=== PATIENT | female | born 1930 | race Hispanic/Latino ===

== ENCOUNTER 2017-01-04 10:24 | Inpatient (IN) | payer MEDICARE, BC ==
[2017-01-04 10:27] VITALS: BMI 29.0
[2017-01-04] MEDS ORDERED: Sodium Chloride 0.9% 1,000 ML IV STA (10:50)
--- NOTE | 2017-01-04 11:10 | ED PDOC ---
HPI: Altered Mental Status Time Seen by Provider: 01/04/17 10:32 Chief Complaint (Nursing): Altered Mental Status History Per: EMS, Other (collections attorney) Additional Complaint(s): 86-year-old female, PMHx includes CVA, Hypertension and COPD, is brought to the emergency department by EMS, called by homemaker, with complaints of AMS. [facility] [employer] reports that this morning, patient appeared more disoriented and confused than baseline. Patient denies any complaints at this time. No headache , dizziness, chest pain, abdominal pain, or any other associated symptoms. No other complaints at this time. Past Medical History Reviewed: Historical Data, Nursing Documentation, Vital Signs ( ) Vital Signs: Last Vital Signs Temp 98.2 F 01/04/17 10:26 Pulse 88 01/04/17 10:26 Resp 20 01/04/17 10:26 BP 184/108 H 01/04/17 10:26 Pulse Ox 100 01/04/17 10:26 - Medical History PMH: CVA - Family History Family History: States: Unknown Family Hx - Allergies Allergies/Adverse Reactions: Allergies Allergy/AdvReac Type Severity Reaction Status Date / Time Unobtainable Allergy Verified 01/04/17 10:43 Review of Systems ROS Statement: Except As Marked, All Systems Reviewed And Found Negative Constitutional: Negative for: Fever Respiratory: Negative for: Cough, Shortness of Breath Gastrointestinal: Negative for: Nausea, Vomiting Skin: Negative for: Rash Neurological: Positive for: Confusion. Negative for: Weakness, Numbness Physical Exam - Reviewed Nursing Documentation Reviewed: Yes Vital Signs Reviewed: Yes - Physical Exam Appears: Positive for: Non-toxic, No Acute Distress Head Exam: Positive for: ATRAUMATIC, NORMOCEPHALIC Skin: Positive for: Warm, Dry. Negative for: Rash Eye Exam: Positive for: Normal appearance Neck: Positive for: Painless ROM Cardiovascular/Chest: Positive for: Regular Rate, Rhythm Respiratory: Positive for: Rhonchi (scattered). Negative for: Accessory Muscle Use, Respiratory Distress Gastrointestinal/Abdominal: Positive for: Soft. Negative for: Tenderness Extremity: Positive for: Normal ROM, Pedal Edema (2+) Neurologic/Psych: Positive for: Alert, Oriented (x2). Negative for: Motor/ Sensory Deficits - Laboratory Results Result Diagrams: 01/04/17 11:38 03/27/17 15:01 - ECG O2 Sat by Pulse Oximetry: 100 Medical Decision Making Medical Decision Making: Impression: AMS Plan: * CT Head * EKG * CMP * CBC * Chest X-Ray * IVF * Blood/Urine Cultures * Reassess and Disposition EKG Rate 84bpm Rhythm NSR Interpret No acute ST/T wave changes Addl h/o obtained from son. Confusion began last night as reported by caregiver to son last night. Family requesting transfer to [facility] as PMD is their. Explained to family that all testing, workup and tx is available at [facility] but still requesting transfer to [facility] Famiy reconsidered and wishes pt to be admitted here Scribe Attestation: Documented by Aleyda Nielson acting as a scribe for Robert Herzog MD. Provider Attestation: All medical record entries made by the Scribe were at my direction and personally dictated by me. I have reviewed the chart and agree that the record accurately reflects my personal performance of the history, physical exam, medical decision making, and the department course for this patient. I have also personally directed, reviewed, and agree with the discharge instructions and disposition. Disposition - Clinical Impression Clinical Impression: Urinary tract infection, Renal insufficiency, Altered mental status - Patient ED Disposition Is Patient to be Admitted: Yes - Disposition Disposition Time: 15:40 Condition: FAIR - Pt Status Changed To: Hospital Disposition Of: Inpatient - Admit Certification Admit to Inpatient:: After my assessment, the patient will require hospitalization for at least two midnights. This is because of the severity of symptoms shown, intensity of services needed, and/or the medical risk in this patient being treated as an outpatient. - POA Present On Arrival: None
[2017-01-04 11:20] LABS: VENOUS BLOOD GAS BASE EXCESS -2.1 mmol/L (0.0-2.0); VENOUS BLOOD GAS PCO2 49 mmHg (40-60); VENOUS BLOOD PH 7.31 (7.32-7.43)
[2017-01-04 11:53] LABS: BASO # 0.1 K/uL (0.0-0.2); BASO % 0.8 % (0.0-2.0); EOS # 0.9 K/uL (0.0-0.7); EOS % 9.2 % (0.0-4.0); HEMATOCRIT 45.9 % (34.0-47.0); LYMPH # 1.6 K/uL (1.0-4.3); LYMPH % 15.5 % (20.0-40.0); MEAN CELL VOLUME 99.5 fl (81.0-99.0); MEAN CORPUSCULAR HEMOGLOBIN 33.3 pg (27.0-31.0); MEAN CORPUSCULAR HGB CONC 33.5 g/dL (33.0-37.0); MEAN PLATELET VOLUME 8.2 fl (7.2-11.7); MONO # 0.8 K/uL (0.0-0.8); MONO % 7.6 % (0.0-10.0); NEUT # 6.8 K/uL (1.8-7.0); NEUT % 66.9 % (50.0-75.0); NRBC % 0.1 % (0.0-0.0); RED CELL DISTRIBUTION WIDTH 15.2 % (11.5-14.5); WHITE BLOOD COUNT 10.1 K/uL (4.8-10.8)
--- NOTE | 2017-01-04 13:13 | RAD ---
HISTORY: AMS COMPARISON: No prior. TECHNIQUE: Chest PA and lateral FINDINGS: LUNGS: The lungs are well inflated and clear. PLEURA: No significant pleural effusion identified. No pneumothorax apparent. CARDIOVASCULAR: There is mild cardiomegaly. There is unfolding of aorta. Midfoot arch. OSSEOUS STRUCTURES: No significant abnormalities. VISUALIZED UPPER ABDOMEN: Normal. OTHER FINDINGS: None. IMPRESSION: No active pulmonary disease.
--- NOTE | 2017-01-04 13:58 | CT ---
PROCEDURE: CT HEAD WITHOUT CONTRAST. HISTORY: r/o bleed COMPARISON: None available. TECHNIQUE: Axial computed tomography images were obtained through the head/brain without intravenous contrast. Radiation dose: Total exam DLP = 1211.14 mGy-cm. FINDINGS: HEMORRHAGE: No intracranial hemorrhage. BRAIN: No mass effect or edema. Moderate atrophy. Moderate white matter changes are noted likely due to chronic microvascular ischemic disease. Widening of the extra-axial space in the posterior fossa left more than right of uncertain etiology. 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 VENTRICLES: Unremarkable. No hydrocephalus. CALVARIUM: Unremarkable. PARANASAL SINUSES: Unremarkable as visualized. No significant inflammatory changes. MASTOID AIR CELLS: Unremarkable as visualized. No inflammatory changes. OTHER FINDINGS: None. IMPRESSION: No evidence of acute intracranial hemorrhage. Mild atrophy and moderate to extensive white matter changes suggestive but nonspecific for chronic microvascular ischemic disease. . No CT evidence of acute pathology in the brain.
[2017-01-04] MEDS ORDERED: Piperacillin/Tazobact 3.375 GM in Sodium Chloride 0.9% 100 ML IVPB STA (14:32)
[2017-01-04] MEDS ORDERED: Piperacillin/Tazobact 3.375 gm Inj IVPB ONE (14:55)
[2017-01-04 15:29] LABS: CALCIUM 11.8 mg/dL (8.4-10.2)
[2017-01-04 15:36] LABS: RBC URINE 67 /hpf (0-3); URINE BILIRUBIN NEGATIVE (NEGATIVE); URINE BLOOD NEGATIVE (NEGATIVE); URINE COLOR YELLOW (YELLOW); URINE GLUCOSE (UA) NEG (Normal); URINE KETONE TRACE mg/dL (NEGATIVE); URINE LEUKOCYTE ESTERASE MOD Leu/uL (Negative); URINE PROTEIN 100 mg/dL (NEGATIVE); URINE UROBILINOGEN 0.2-1.0 mg/dL (0.2-1.0); WBC URINE 3882 /hpf (0-5)
--- NOTE | 2017-01-04 17:12 | CARD ---
APPROVED REPORT EKG Measurement Heart [id number] <Conclusion> Sinus rhythm with frequent premature ventricular complexes Left anterior fascicular block Cannot rule out Inferior infarct (masked by fascicular block?), age undetermined Anterior infarct, age undetermined Abnormal ECG
--- NOTE | 2017-01-04 18:37 | PCM.RRTMUL ---
<Hazel Ernandez - Last Filed: 01/04/17 18:35> BLASTING MACHINE OPERATOR Nurse Assessment - Vital Signs Blood Pressure:: 161/86 Pulse Rate:: 85 Respiratory Rate:: 16 Responder Note - Time BLASTING MACHINE OPERATOR was called Time BLASTING MACHINE OPERATOR was called:: 17:59 - Location Location: [facility] Primary Physician:: Francois Rothman I - BLASTING MACHINE OPERATOR Team BLASTING MACHINE OPERATOR Leader:: Eboni White Resident:: Hazel Ernandez - Vital Signs at Initial Assessment Blood Pressure:: 209/106 Pulse Rate:: 66 Respiratory Rate:: 14 - Chest Pain Chest Pain:(If answer is yes, complete next 2 questions): No - Seizure Seizure:: No New Onset:: No - Neurological Status Neurological Status (Select all that apply):: Alert, Responsive, Follows Commands, Confused - Respiratory BLASTING MACHINE OPERATOR Delivery Method:: Nasal Cannula @L/min (2) - Assessment of Findings BLASTING MACHINE OPERATOR Interventions: Hydralizine 10mg IVP EKG: EKG Labs: CBC, CMP, Trop Summary - Summary of Event Summary of Event: 86 year old female with a history of COPD, HTN, CVA. Called to respond to BLASTING MACHINE OPERATOR for BP 209/106. Vitals otherwise stable. Patient admitted with acute mental status changes likely secondary to delirium with UTI. Denies chest pain, shortness of breath, palpitations. Saturations and respirations WNL. Physical Exam: HEENT: NC, AT, ABBIE LUNGS: CTA BL CV: S1 S2 RRR No M/R/G Abd: Soft, nt, nd Ext: no cyanosis/ edema Mental status: AOx2, slight confusion, labile affect Hydralizine 10mg IVP given- BP improved 170/[address] Rothman notified of event EKG ordered and ER EKG reviewed- PVCs- no signs of acute infarct Troponin ordered stat, CBC, CMP Spanner Operator: , Dr. Brayan Palomares. Attempted to contact. Spoke with central office supervisor. <Eboni White - Last Filed: 01/16/17 14:02> Attending/Attestation - Attestation I have personally seen and examined this patient.: Yes I have fully participated in the care of the patient.: Yes I have reviewed all pertinent clinical information: Yes Notes (Text): 01/16/17 14:01 seen and examined patient with resident and BLASTING MACHINE OPERATOR TEAM. Agree with findings and plan as above.
[2017-01-04] MEDS ORDERED: Magnesium Hydroxide Susp 30 ml UD PO PRN (19:05)
[2017-01-04] MEDS: Sodium Chloride 0.45% 1,000 ML IV SCH (20:00)
[2017-01-04] MEDS: Insulin Regular 100 units/ml SC SCH (21:30)
[2017-01-04] MEDS: Piperacillin/Tazobact 3.375 GM in Sodium Chloride 0.9% 100 ML IVPB SCH (21:34)
[2017-01-04] MEDS: Albuterol-Ipratrop 3 mg / 0.5 (3 ml) UD INH SCH (22:00)
[2017-01-05] MEDS: Albuterol-Ipratrop 3 mg / 0.5 (3 ml) UD INH SCH ×4 (01:06→21:23)
[2017-01-05] MEDS: Insulin Regular 100 units/ml SC SCH ×4 (06:44→22:25)
[2017-01-05] MEDS: Pantoprazole 40 mg EC Tab PO SCH (08:58)
[2017-01-05] MEDS: Metoprolol Succinate 50 mg XL Tab PO SCH (08:59)
[2017-01-05] MEDS ORDERED: HYDRALAZINE HCL 50 MG PO SCH (09:00)
[2017-01-05] MEDS ORDERED: Metoprolol Succinate 25 mg XL Tab PO SCH (09:00)
[2017-01-05] MEDS: Piperacillin/Tazobact 3.375 GM in Sodium Chloride 0.9% 100 ML IVPB SCH ×2 (09:02→21:23)
--- NOTE | 2017-01-05 12:31 | HP ---
SUBJECTIVE: The patient is an 86-year-old female who was admitted via the Emergency Room after she w as brought in by a homemaker complaining of change in mental status. She appeared disoriented and co nfused the day of admission. She was seen in the Emergency Room and diagnosed with urinary tract inf ection and elevated blood pressure and admitted for workup and therapy. PAST MEDICAL HISTORY: She has a past medical history of hypertension, cerebrovascular accident, card iac arrhythmias, and COPD. FAMILY HISTORY: Nonrevealing. SOCIAL HISTORY: She does not drink or smoke. 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 Has a very supportive family. PHYSICAL EXAMINATION: GENERAL: The patient is alert, oriented x 1, appears to be much more comfortable this morning. VITAL SIGNS: Blood pressure on admission 184/108, pulse of 88, respiratory rate 20. She is afebrile . O2 sat 100% on room air. SKIN: Shows fair turgor. HEENT: Pupils equal and react to light and accommodation. Mouth shows fair hygiene. NECK: JVP flat. LUNGS: Clear. HEART: Regular. No murmurs or gallops. ABDOMEN: Soft, nontender, no organomegaly. EXTREMITIES: Shows no edema or cyanosis. CENTRAL NERVOUS SYSTEM: Grossly intact. LABORATORY DATA: WBC 10.1, hemoglobin 15.4, platelet count of 259,000. Sodium 140, potassium 5.0, B UN 69, creatinine 5.4, troponin 0.022. EKG sinus rhythm with frequent PVCs. CT scan of the brain: No evidence of acute intracranial hemorrhage, mild atrophy and moderate to extensive white matter annie nges suggestive, but nonspecific for chronic microvascular ischemic disease. Chest x-ray: No acute cardiopulmonary disease. Urinalysis is remarkable for moderate leukocytes, red blood cells of 67. W BC 3882. IMPRESSION: Altered mental status, probably secondary to urinary tract infection and dehydration, hi story of cardiac arrhythmias, history of hypertension poorly controlled, history of atrial fibrillati on for which the patient takes Coumadin, but apparently has been noncompliant. PLAN: IV hydration. Blood pressure control, cardiac evaluation. Will continue therapy as ordered. Francois Rothman MD cc: [id number] TT: 01/05/2017 12:30:32 jn
--- NOTE | 2017-01-05 13:38 | PQF GENQUE ---
Dr. Rothman, (1) Pressure Ulcer(s)?; if yes: (2) Site and Stage ? (3) POA: Present on Admission? OR: Unable to determine? Nurses Admission Assessment: sacrum: redness, skin excoriation perianal area, and inner thighs Attending Physician order: Nursing referral Wound Care: reason for exam: Pressure Ulcer Wound Consult:pending This form is a permanent part of the medical record Clarification of your documentation is requested to better reflect the severity of illness and intensity of treatment of your patient. Indicators present [] Specify: [] [] Specify: [] [] Specify: [] [] Specify: [] Location in the medical record that reflects the above clinical findings: [] Treatment Provided: [] PHYSICIAN'S RESPONSE Based on your medical judgment of the clinical indicators outlined above please clarify the following: [] Practitioner response [] If unable to determine, please check the box, sign and date. Present On Admission (POA) Indicator: [] Present at the time of admission [] Not present at the time of admission [] Clinically Undetermined In responding to this query, please exercise your independent professional judgment. The fact that a question is asked does not imply that any particular answer is desired or expected. Thank you for your clarification on this documentation. If you have any questions please call. * Thank you, Italia Saunders RN BSN ext. #[phone] MTDD
[2017-01-05] MEDS: Sodium Chloride 0.45% 1,000 ML IV SCH (19:30)
[2017-01-06] MEDS: Albuterol-Ipratrop 3 mg / 0.5 (3 ml) UD INH SCH ×4 (01:09→20:50)
[2017-01-06] MEDS: Insulin Regular 100 units/ml SC SCH ×4 (06:30→22:00)
[2017-01-06] MEDS: Pantoprazole 40 mg EC Tab PO SCH (09:14)
[2017-01-06] MEDS: Metoprolol Succinate 50 mg XL Tab PO SCH (09:14)
[2017-01-06] MEDS: Piperacillin/Tazobact 3.375 GM in Sodium Chloride 0.9% 100 ML IVPB SCH ×2 (09:15→21:17)
--- NOTE | 2017-01-06 10:02 | CP.PCM.PN ---
Subjective - Date & Time of Evaluation Date of Evaluation: 01/06/17 Time of Evaluation: 10:02 - Subjective Subjective: CLINICALLY IMPROVING MORE ALERT NO APPARENT DISTRESS Objective - Vital Signs/Intake and Output Vital Signs (last 24 hours): Temp Pulse Resp BP Pulse Ox 98.2 F 68 18 147/74 97 01/06/17 08:15 01/06/17 09:14 01/06/17 08:15 01/06/17 09:14 01/06/17 08:15 - Medications Medications: Current Medications Albuterol/Ipratropium (Duoneb 3 Mg/0.5 Mg (3 Ml) Ud) 3 ml INH RQ6 [facility] Last Admin: 01/06/17 08:12 Dose: 3 ml Allopurinol (Zyloprim) 100 mg PO DAILY [facility] Last Admin: 01/06/17 09:15 Dose: 100 mg Amlodipine Besylate (Norvasc) 2.5 mg PO DAILY [facility] Last Admin: 01/06/17 09:13 Dose: 2.5 mg Clonidine HCl (Catapres) 0.1 mg PO TID PRN PRN Reason: bp systolic greater than 170 Docusate Sodium (Colace) 100 mg PO DAILY PRN PRN Reason: Constipation Hydralazine HCl (Apresoline) 50 mg PO TID [facility] Last Admin: 01/06/17 09:12 Dose: 50 mg Hydroxyzine HCl (Atarax) 25 mg PO DAILY [facility] Last Admin: 01/06/17 09:12 Dose: 25 mg Piperacillin Sod/Tazobactam (Sod 3.375 gm/ Sodium Chloride) 100 mls @ 100 mls/ hr IVPB Q12 [facility] Last Admin: 01/06/17 09:15 Dose: 100 mls/hr Insulin Human Regular (Humulin R) 0 units SC ACHS [facility] PRN Reason: Protocol Last Admin: 01/06/17 06:30 Dose: Not Given Magnesium Hydroxide (Milk Of Magnesia) 30 ml PO QID PRN PRN Reason: Constipation Metoprolol Succinate (Toprol Xl) 50 mg PO DAILY [facility] Last Admin: 01/06/17 09:14 Dose: 50 mg Pantoprazole Sodium (Protonix Ec Tab) 40 mg PO DAILY [facility] Last Admin: 01/06/17 09:14 Dose: 40 mg - Labs Labs: PT 12.3 SECONDS (9.6-11.2) H 01/05/17 09:05 INR 1.18 (0.92-1.08) H 01/05/17 09:05 - Constitutional Appears: No Acute Distress - Head Exam Head Exam: ATRAUMATIC, NORMAL INSPECTION, NORMOCEPHALIC - Eye Exam Eye Exam: EOMI, Normal appearance, PERRL Pupil Exam: NORMAL ACCOMODATION, PERRL - ENT Exam ENT Exam: Mucous Membranes Moist, Normal Exam - Neck Exam Neck Exam: Full ROM, Normal Inspection. absent: Lymphadenopathy - Respiratory Exam Respiratory Exam: Clear to Ausculation Bilateral, NORMAL BREATHING PATTERN - Cardiovascular Exam Cardiovascular Exam: REGULAR RHYTHM, +S1, +S2. absent: Murmur - GI/Abdominal Exam GI & Abdominal Exam: Soft, Normal Bowel Sounds. absent: Tenderness - Rectal Exam Rectal Exam: NORMAL INSPECTION - Extremities Exam Extremities Exam: Full ROM, Normal Capillary Refill, Normal Inspection. absent : Joint Swelling, Pedal Edema - Back Exam Back Exam: NORMAL INSPECTION - Neurological Exam Neurological Exam: Alert, Awake, CN II-XII Intact, Normal Gait, Oriented x3 - Psychiatric Exam Psychiatric exam: Normal Affect, Normal Mood - Skin Skin Exam: Dry, Intact, Normal Color, Warm Assessment and Plan - Assessment and Plan (Free Text) Assessment: UTI DEHYDRATION HTN ARRYTHMIAS Plan: CONTINUE PRESENT RX D/C IV FLUIDS CONSIDER TRANSITIONAL CARE IF OK WITH FAMILY
[2017-01-06 10:30] LABS: CALCIUM 10.6 mg/dL (8.4-10.2); POTASSIUM 4.8 MMOL/L (3.6-5.0)
--- NOTE | 2017-01-06 17:14 | CON ---
DATE: 01/06/2017 REASON FOR EVALUATION: 1. Atrial fibrillation. 2. Coronary artery disease, atherosclerotic heart disease. 3. Hypertension. 4. Mitral regurgitation. 5. Renal insufficiency. HISTORY OF PRESENT ILLNESS: Thank you very much for this consult. The patient is an 86-year-old female, long-term patient of mine with past medical history s ignificant for atrial fibrillation, status post WILLIAM cardioversion, now in normal sinus rhythm/sinus b radycardia, coronary artery disease, atherosclerotic heart disease, hypertension, mitral regurgitatio n, and renal insufficiency, who presents to [facility] after being found to have alt ered mental status by her homemaker. At the time of evaluation, the patient appeared disoriented and confused. The patient was admitted for hypertensive urgency and possible urinary tract infection. I was reached for medical records as well as a 12-lead EKG. I have been asked to see her formally fr om a cardiovascular standpoint. Today at the bedside, she appears to be at/near baseline in terms of mental status. She is awake and oriented x 3 without any degree of confusion. She has poor functio nal status. Previously had been able to take a few steps on her own and has had prolonged admissions to rehabilitation in an effort to improve her functional status. At this point, she is, generally s peaking, wheelchair bound. She denies any palpitations, shortness of breath or chest discomfort. Sh e denies any dizziness or syncope. PAST MEDICAL HISTORY: Again, significant for hypertension, chronic renal insufficiency, history of C VA, atrial fibrillation on amiodarone, COPD. FAMILY HISTORY: Negative for premature coronary artery disease or sudden cardiac . 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 She does not smoke . She does not drink. She has a very supportive family. Very familiar with her son, Pritesh. PHYSICAL EXAMINATION: VITAL SIGNS: Temperature is 97.7, pulse rate of 68, blood pressure is 147/74. GENERAL: She is a well-developed, well-nourished female in no acute distress. Able to spe ak in complete sentences. HEENT: Head is normocephalic, atraumatic. There is no mart facial asymmetry. She is able to speak clearly. Examination of her eyes does show some iridial abnormalities. NECK: Supple, no jugular venous distention, no carotid bruits. CHEST: Clear to auscultation bilaterally. CARDIOVASCULAR: Regular rate and rhythm. S1, S2. No S3 or S4. ABDOMEN: Soft, nontender, nondistended. Positive bowel sounds. EXTREMITIES: No cyanosis, clubbing. There is 1+ lower extremity edema. Peripheral pulses are 2+ an d symmetric in bilateral upper and lower extremities. On review of relevant lab work, patient has an INR of 1.8. PT of 12.3. Sodium of 141. Potassium is 4.8. BUN and creatinine of 76 and 6.0. White count is 10.1, which is on the 27th. H and H of 15.4 and 45.9, platelets of 259. INR is 1.0. Creatinine had been 76 and 6.0, now it is 69 and 5.4. Tro ponin 0.022. CURRENT MEDICATIONS: The patient is on albuterol, DuoNeb, amlodipine 2.5 mg p.o. daily, clonidine 0. 1 mg 3 times a day p.r.n. for very elevated blood pressure, hydralazine 50 mg 3 times a day, metoprol ol XL 50 mg daily, warfarin 4 mg p.o. daily, which is being given. EKG from presentation shows sinus rhythm, sinus arrhythmia, PVCs, poor precordial R-wave progression, QT and QTC of 382 and 451 respectively. Compared to EKG which was last done on 06/29/2016 shows kiara beasley poor precordial R-wave progression, normal sinus rhythm, 76 beats per minute. QT, QTC in this case was 404 and 28 respectively. In terms of when she was last seen in the office, last creatinine was 4.4. The patient had been in n ormal sinus rhythm and she was to be on anticoagulation. She had been on amiodarone 100 mg once a da y. ASSESSMENT AND PLAN: 1. Atrial fibrillation, status post WILLIAM cardioversion and amiodarone therapy. At this point, would resume amiodarone at 100 mg p.o. daily. Would continue her current medications in terms of anticoagu lation, Coumadin, to achieve a therapeutic INR. 2. History of coronary artery disease, atherosclerotic heart disease. The patient has had a history of positive stress test in the past, cardiac catheterization was deferred secondary to patient's mar ginal renal status. Would continue current medical therapy in an effort to prevent angina or worseni ng heart failure. 3. Hypertension. We will continue adjusting her medications as such, clonidine p.r.n. at this point I believe to be reasonable. She may be, on some basis, hypertensive secondary to poor fluid clearan ce. The patient may need sporadic Lasix which will be added as such. 4. Mitral regurgitation which on prior studies has been severe. Again, invasive, aggressive managem ent of mitral regurgitation is not desired at this time given her multiple medical issues. 5. Renal insufficiency, which appears to be worse. We may consider giving diuretics to maintain her fluid status. The patient's steel fixer is Dr. Dotson, who has been following her serially. Thank you for allowing me to participate in the care of your patient. Please do not hesitate to call for any questions in regards to her care. Brayan Jenkins MD cc:Francois Rothman MD [id number] TT: 01/06/2017 17:13:47 Confirmation # [id number] Dictation # [id number] betty
--- NOTE | 2017-01-06 18:16 | US ---
PROCEDURE: Ultrasound of the Kidneys HISTORY: renal insufficiency COMPARISON: None available. TECHNIQUE: Sonogram of the kidneys. FINDINGS: RIGHT KIDNEY: Measures: 8.3 x 4.1 x 4.7 cm. The kidneys are echogenic. No stone, solid mass lesion or hydronephrosis visualized. LEFT KIDNEY: Measures: 9.5 x 4 x 3.5 cm. Kidneys are echogenic. No stone, solid mass lesion or hydronephrosis visualized. OTHER FINDINGS: None. IMPRESSION: Echogenic kidneys suggestive of medical renal disease. No evidence of hydronephrosis.
--- NOTE | 2017-01-06 20:11 | CP.PCM.CON ---
History of Present Illness - History of Present Illness History of Present Illness: pt seen and examined, full consult is dictated #[id number] 1. JIL on ckd-4, 2. dehydration 3. met. acidosis 4. UTI continue iv abx check urine lytes, osm, cr ivf 1/2 ns at 50 ml /hr bmp in am Past Patient History - Past Medical History & Family History Past Medical History?: Yes - Past Social History Smoking Status: Former Smoker - CARDIAC Hx Atrial Fibrillation: Yes Hx Congestive Heart Failure: Yes Hx Hypertension: Yes - PULMONARY Other/Comment: bipap at home - NEUROLOGICAL HX Cerebrovascular Accident: Yes - ENDOCRINE/METABOLIC Hx Diabetes Mellitus Type 2: Yes - MUSCULOSKELETAL/RHEUMATOLOGICAL Hx Arthritis: Yes Hx Falls: Yes Hx Fractures: Yes - PSYCHIATRIC Hx Substance Use: No - SURGICAL HISTORY Hx Surgeries: Yes Hx Section: Yes (x2) - ANESTHESIA Hx Anesthesia: Yes Hx Anesthesia Reactions: No Meds Allergies/Adverse Reactions: Allergies Allergy/AdvReac Type Severity Reaction Status Date / Time colchicine Allergy RASH Verified 01/04/17 17:48 - Medications Medications: Current Medications Albuterol/Ipratropium (Duoneb 3 Mg/0.5 Mg (3 Ml) Ud) 3 ml INH RQ6 [facility] Last Admin: 01/06/17 16:30 Dose: 3 ml Allopurinol (Zyloprim) 100 mg PO DAILY [facility] Last Admin: 01/06/17 09:15 Dose: 100 mg Amiodarone HCl (Cordarone) 100 mg PO DAILY [facility] Amlodipine Besylate (Norvasc) 2.5 mg PO DAILY [facility] Last Admin: 01/06/17 09:13 Dose: 2.5 mg Clonidine HCl (Catapres) 0.1 mg PO TID PRN PRN Reason: bp systolic greater than 170 Docusate Sodium (Colace) 100 mg PO DAILY PRN PRN Reason: Constipation Hydralazine HCl (Apresoline) 50 mg PO TID [facility] Last Admin: 01/06/17 17:13 Dose: 50 mg Hydroxyzine HCl (Atarax) 25 mg PO DAILY [facility] Last Admin: 01/06/17 09:12 Dose: 25 mg Piperacillin Sod/Tazobactam (Sod 3.375 gm/ Sodium Chloride) 100 mls @ 100 mls/ hr IVPB Q12 [facility] Last Admin: 01/06/17 09:15 Dose: 100 mls/hr Sodium Chloride (Sodium Chloride 0.45%) 1,000 mls @ 50 mls/hr IV .Q20H [facility] Stop: 01/07/17 20:16 Insulin Human Regular (Humulin R) 0 units SC ACHS [facility] PRN Reason: Protocol Last Admin: 01/06/17 17:09 Dose: Not Given Magnesium Hydroxide (Milk Of Magnesia) 30 ml PO QID PRN PRN Reason: Constipation Metoprolol Succinate (Toprol Xl) 50 mg PO BID [facility] Pantoprazole Sodium (Protonix Ec Tab) 40 mg PO DAILY [facility] Last Admin: 01/06/17 09:14 Dose: 40 mg Sodium Bicarbonate (Sodium Bicarbonate Tab) 650 mg PO Q8 [facility] Results - Vital Signs Recent Vital Signs: Last Vital Signs Temp 97.9 F 01/06/17 19:49 Pulse 92 H 01/06/17 19:49 Resp 20 01/06/17 19:49 BP 157/89 H 01/06/17 19:49 Pulse Ox 98 01/06/17 19:49 - Labs Result Diagrams: 01/04/17 11:38 01/06/17 09:55 Labs: Laboratory Results - last 24 hr 01/05/17 01/05/17 01/05/17 05:03 11:09 14:52 PT INR Sodium Potassium Chloride Carbon Dioxide Anion Gap BUN Creatinine Est GFR ( Amer) Est GFR (Non-Af Amer) POC Glucose (mg/dL) 109 203 H 133 H Random Glucose Calcium 01/05/17 01/05/17 01/06/17 15:57 22:08 05:01 PT INR Sodium Potassium Chloride Carbon Dioxide Anion Gap BUN Creatinine Est GFR ( Amer) Est GFR (Non-Af Amer) POC Glucose (mg/dL) 98 103 112 H Random Glucose Calcium 01/06/17 01/06/17 01/06/17 09:55 11:23 11:34 PT 13.5 H INR 1.30 H Sodium 141 Potassium 4.8 Chloride 103 Carbon Dioxide 17 L Anion Gap 26 H BUN 76 H Creatinine 6.0 H Est GFR ( Amer) 8 Est GFR (Non-Af Amer) 7 POC Glucose (mg/dL) 181 H Random Glucose 122 H Calcium 10.6 H
[2017-01-06] MEDS: Sodium Chloride 0.45% 1,000 ML IV SCH (20:20)
[2017-01-07] MEDS: Albuterol-Ipratrop 3 mg / 0.5 (3 ml) UD INH SCH ×4 (01:01→19:36)
--- NOTE | 2017-01-07 01:46 | CON ---
DATE: 01/06/2017 RENAL CONSULTATION The patient is located in room 405, bed 1. REQUESTING PHYSICIAN: Dr. Francois Rothman. REASON FOR RENAL CONSULTATION: Acute renal failure, chronic kidney disease stage IV, UTI and altered mental status. 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 Diamond Dotson for nephology. Was admitted with chief complaints of altered me ntal status, confusion. The patient is being treated for possible UTI and worsening renal function. The patient is more alert, awake, following commands appropriately, responding to commands appropriat trent. Denies any chest pain, palpitation. Denies any nausea, vomiting. Denies any abdominal pain. Denies any dysuria or frequency. PAST MEDICAL HISTORY: Significant for hypertension for a long time and chronic kidney disease stage IV, anemia, and breast CA. PAST SURGICAL HISTORY: Status post surgery for breast CA on the left side when she was about 19 year s old. ALLERGIES: ALLERGIC TO COLCHICINE. SOCIAL HISTORY: The patient was an ex-smoker, social alcohol use and no drug abuse. FAMILY HISTORY: Not significant. 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 CURRENT MEDICATIONS: Include as follows: Hydralazine 50 mg p.o. t.i.d., Atarax 25 mg p.o. daily, Co lace 100 mg daily p.r.n., clonidine 0.1 mg p.o. t.i.d., DuoNeb inhaler q. 6 hours, milk of magnesia 3 0 mL p.o. q.i.d., amlodipine 2.5 mg p.o. daily, Protonix 40 mg p.o. daily, sodium bicarbonate 650 mg p.o. q. 8 hours, IV fluids started half normal saline at 50 mL per hour, metoprolol 50 mg p.o. b.i.d. , and allopurinol 100 mg p.o. daily. REVIEW OF SYSTEMS: Significant for dehydration and also altered mental status and worsening renal fu nction. All other review of systems are reviewed and are negative. PHYSICAL EXAMINATION: VITAL SIGNS: Blood pressure 157/89, pulse 92, respirations 20, temperature 97.9, saturation 98%. He ight 5 feet 7 inches and weight is 185 pounds. GENERAL: The patient is about an 86-year-old elderly female, moderately built, moderately nourished, not in acute distress. HEENT: Pupils normal, reactive to light and accommodation. Conjunctivae pink. Sclerae anicteric. Tongue is dry. NECK: Trachea is midline. No thyroid enlargement. LUNGS: Symmetric on both sides. Bilateral breath sounds present. Clear on auscultation. CARDIOVASCULAR: [place] at the fifth intercostal space midclavicular line. S1 and S2 audible. No murm ur or gallop. ABDOMEN: Normal in appearance. Soft, tympanic. No guarding, no rigidity, no hepatosplenomegaly. CENTRAL NERVOUS SYSTEM: The patient is alert, awake, oriented x2-3. Cranial nerves II-XII grossly i ntact. Sensory and motor system is within normal limits. EXTREMITIES: No cyanosis, no clubbing, no edema. LABORATORY DATA: Include as follows: As of 01/06/2017, PT 13.5, INR 1.3. Sodium 141, potassium 4.8 , chloride 103, CO2 17 with anion gap of about 21, BUN 76, creatinine 6.0 and glucose is 122, calcium is 10.6. As of 01/04/2017, WBC is 10.1, hemoglobin 15.4, hematocrit is 45.9, platelets 259. PT 11.4 , INR 1.1, VBG pH 7.31, pO2 28 and pCO2 of 49. Sodium is 140, potassium is 5, chloride 102, CO2 18 wi th anion gap about 20, BUN 69, creatinine is 5.4 and calcium was 11.8. Urinalysis: Yellow, turbid, p H 6 and specific gravity 1.013, protein 100, glucose negative, ketones trace, blood negative, nitrite s negative, bilirubin negative, urobilinogen 0.2-1.0, leukocyte esterase moderate, WBC 3882 and RBC 6 7 and troponin 0.022. Blood culture x1 negative day #2. Urine culture as of 01/04/2017 positive for S treptococcus anginosus and also Staphylococcus aureus. Streptococcus sensitive to Rocephin, penicilli n and vancomycin. Staph aureus sensitive to vancomycin. Other laboratory data, ultrasound of the kid neys as of 01/06/2017, right kidney 8.3 cm x 4.1 cm x 4.7 cm and left kidney 9.5 cm x 4 cm x 3.5 cm. Kidneys are echogenic. No evidence of hydronephrosis. CT of the head as of 01/04/2017, no evidence of acute intracranial hemorrhage, mild atrophy and moderate to extensive white matter changes suggestive but not specific for chronic microvascular ischemic disease. No CT evidence of acute pathology in th e brain. Chest x-ray as of 01/04/2017, no active pulmonary disease. SUMMARY: The patient is an 86-year-old elderly female with a history of hypertension, history of cer ebrovascular accident, chronic kidney disease stage IV with a baseline creatinine about 44.5, history of UTI 1-2 times a year in the past. 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 Diamond Dotson, who was admitted with altered mental status and found to have a urinary tract infection and also increas ed BUN and creatinine and increased H and H. 1. Renal failure, [id number] kidney disease, acute component is most likely secondary to intrav ascular volume depletion and chronic kidney disease most likely hypertensive nephrosclerosis. 2. Anion gap metabolic acidosis, most likely secondary to renal failure. 3. Urinary tract infection. 4. Hypertension. PLAN: We will start IV fluids half normal saline at 50 mL per hour and check urine electrolytes and osmolality and urine creatinine. Continue to monitor BMP in the a.m. We will follow with you. Thank you for allowing me to participate in your patient's care. Vinny Caballero MD cc: [id number] TT: 01/07/2017 01:46:10 Confirmation # [id number] Dictation # [id number] isma
[2017-01-07] MEDS: Insulin Regular 100 units/ml SC SCH ×4 (06:51→23:33)
[2017-01-07 07:35] LABS: CALCIUM 10.3 mg/dL (8.4-10.2); POTASSIUM 4.5 MMOL/L (3.6-5.0)
[2017-01-07 07:57] LABS: THYROID STIMULATING HORMONE 3.72 mIU/ML (0.46-4.68)
[2017-01-07 08:54] LABS: HEMATOCRIT 41.1 % (34.0-47.0); MEAN CELL VOLUME 99.1 fl (81.0-99.0); MEAN CORPUSCULAR HEMOGLOBIN 32.6 pg (27.0-31.0); MEAN CORPUSCULAR HGB CONC 32.9 g/dL (33.0-37.0); RED CELL DISTRIBUTION WIDTH 14.9 % (11.5-14.5)
--- NOTE | 2017-01-07 09:18 | CP.PCM.PN ---
Subjective - Date & Time of Evaluation Date of Evaluation: 01/07/17 Time of Evaluation: 09:20 - Subjective Subjective: CONFUSED NO APPOARENT DISTRESS CASE DISCUSSED WITH DR LIAO WHO INDICATES THAT HE HAS OPTIMIZED PT'S CARDIAC MEDS AND WILL NOT PURUE FURTHER AGGRESSIVE INTERVENTION.HE ALSO INDICATES THAT THE PT'S FAMILY DOES NOT WANT DIALYSIS FOR KIDNEY FAILURE. Objective - Vital Signs/Intake and Output Vital Signs (last 24 hours): Temp Pulse Resp BP Pulse Ox 98.4 F 94 H 18 188/98 H 98 01/07/17 08:06 01/07/17 08:06 01/07/17 08:06 01/07/17 08:06 01/07/17 08:06 - Medications Medications: Current Medications Albuterol/Ipratropium (Duoneb 3 Mg/0.5 Mg (3 Ml) Ud) 3 ml INH RQ6 [facility] Last Admin: 01/07/17 07:35 Dose: 3 ml Allopurinol (Zyloprim) 100 mg PO DAILY [facility] Last Admin: 01/06/17 09:15 Dose: 100 mg Amiodarone HCl (Cordarone) 100 mg PO DAILY [facility] Last Admin: 01/06/17 21:15 Dose: 100 mg Amlodipine Besylate (Norvasc) 2.5 mg PO DAILY [facility] Last Admin: 01/06/17 09:13 Dose: 2.5 mg Clonidine HCl (Catapres) 0.1 mg PO TID PRN PRN Reason: bp systolic greater than 170 Docusate Sodium (Colace) 100 mg PO DAILY PRN PRN Reason: Constipation Hydralazine HCl (Apresoline) 50 mg PO TID [facility] Last Admin: 01/06/17 17:13 Dose: 50 mg Hydroxyzine HCl (Atarax) 25 mg PO DAILY [facility] Last Admin: 01/06/17 09:12 Dose: 25 mg Piperacillin Sod/Tazobactam (Sod 3.375 gm/ Sodium Chloride) 100 mls @ 100 mls/ hr IVPB Q12 [facility] Last Admin: 01/06/17 21:17 Dose: 100 mls/hr Sodium Chloride (Sodium Chloride 0.45%) 1,000 mls @ 50 mls/hr IV .Q20H [facility] Stop: 01/07/17 20:16 Last Admin: 01/06/17 20:20 Dose: 50 mls/hr Insulin Human Regular (Humulin R) 0 units SC ACHS [facility] PRN Reason: Protocol Last Admin: 01/07/17 06:51 Dose: Not Given Magnesium Hydroxide (Milk Of Magnesia) 30 ml PO QID PRN PRN Reason: Constipation Metoprolol Succinate (Toprol Xl) 50 mg PO BID [facility] Pantoprazole Sodium (Protonix Ec Tab) 40 mg PO DAILY [facility] Last Admin: 01/06/17 09:14 Dose: 40 mg Sodium Bicarbonate (Sodium Bicarbonate Tab) 650 mg PO Q8 [facility] Last Admin: 01/07/17 01:31 Dose: 650 mg - Labs Labs: 01/07/17 08:15 01/07/17 06:15 PT 13.5 SECONDS (9.6-11.2) H 01/06/17 11:23 INR 1.30 (0.92-1.08) H 01/06/17 11:23 - Constitutional Appears: No Acute Distress, Confused - Head Exam Head Exam: ATRAUMATIC, NORMAL INSPECTION, NORMOCEPHALIC - Eye Exam Eye Exam: EOMI, Normal appearance, PERRL Pupil Exam: NORMAL ACCOMODATION, PERRL - ENT Exam ENT Exam: Mucous Membranes Moist, Normal Exam - Neck Exam Neck Exam: Full ROM, Normal Inspection. absent: Lymphadenopathy - Respiratory Exam Respiratory Exam: Clear to Ausculation Bilateral, NORMAL BREATHING PATTERN - Cardiovascular Exam Cardiovascular Exam: Irregular Rhythm, +S1, +S2. absent: Murmur - GI/Abdominal Exam GI & Abdominal Exam: Soft, Normal Bowel Sounds. absent: Tenderness - Rectal Exam Rectal Exam: NORMAL INSPECTION - Extremities Exam Extremities Exam: Full ROM, Normal Capillary Refill, Normal Inspection. absent : Joint Swelling, Pedal Edema - Back Exam Back Exam: NORMAL INSPECTION - Neurological Exam Neurological Exam: Alert, Awake, CN II-XII Intact, Normal Gait, Oriented x3 - Psychiatric Exam Psychiatric exam: Normal Affect, Normal Mood - Skin Skin Exam: Dry, Intact, Normal Color, Warm Assessment and Plan - Assessment and Plan (Free Text) Assessment: UTI DEHYDRATION ACUTE ON CHRONIC RENAL FAILURE ARRYTHMIAS DEMENTIA Plan: CONTINUE RX ORDERED WILL NEED IV ANTIBIOTICS CONSIDER TCU
[2017-01-07] MEDS: Pantoprazole 40 mg EC Tab PO SCH (09:34)
[2017-01-07] MEDS: Metoprolol Succinate 50 mg XL Tab PO SCH ×2 (09:36→17:45)
[2017-01-07] MEDS: Piperacillin/Tazobact 3.375 GM in Sodium Chloride 0.9% 100 ML IVPB SCH ×2 (09:37→21:14)
--- NOTE | 2017-01-07 16:46 | CP.PCM.PN ---
Subjective - Date & Time of Evaluation Date of Evaluation: 01/07/17 Time of Evaluation: 16:46 - Subjective Subjective: pt seen and examined, follow up consult is dictated #[id number] continue ivf 1/2 ns at 50 ml/hr bmp in am Objective - Vital Signs/Intake and Output Vital Signs (last 24 hours): Temp Pulse Resp BP Pulse Ox 97.8 F 87 20 168/95 H 97 01/07/17 16:00 01/07/17 16:00 01/07/17 16:00 01/07/17 16:00 01/07/17 16:00 - Medications Medications: Current Medications Albuterol/Ipratropium (Duoneb 3 Mg/0.5 Mg (3 Ml) Ud) 3 ml INH RQ6 [facility] Last Admin: 01/07/17 13:36 Dose: 3 ml Allopurinol (Zyloprim) 100 mg PO DAILY [facility] Last Admin: 01/07/17 09:36 Dose: 100 mg Amiodarone HCl (Cordarone) 100 mg PO DAILY [facility] Last Admin: 01/07/17 09:35 Dose: 100 mg Amlodipine Besylate (Norvasc) 2.5 mg PO DAILY [facility] Last Admin: 01/07/17 09:33 Dose: 2.5 mg Clonidine HCl (Catapres) 0.1 mg PO TID PRN PRN Reason: bp systolic greater than 170 Docusate Sodium (Colace) 100 mg PO DAILY PRN PRN Reason: Constipation Hydralazine HCl (Apresoline) 50 mg PO TID [facility] Last Admin: 01/07/17 12:28 Dose: 50 mg Hydroxyzine HCl (Atarax) 25 mg PO DAILY [facility] Last Admin: 01/07/17 09:33 Dose: 25 mg Piperacillin Sod/Tazobactam (Sod 3.375 gm/ Sodium Chloride) 100 mls @ 100 mls/ hr IVPB Q12 [facility] Last Admin: 01/07/17 09:37 Dose: 100 mls/hr Sodium Chloride (Sodium Chloride 0.45%) 1,000 mls @ 50 mls/hr IV .Q20H [facility] Stop: 01/07/17 20:16 Last Admin: 01/06/17 20:20 Dose: 50 mls/hr Insulin Human Regular (Humulin R) 0 units SC ACHS [facility] PRN Reason: Protocol Last Admin: 01/07/17 12:15 Dose: 1 unit Magnesium Hydroxide (Milk Of Magnesia) 30 ml PO QID PRN PRN Reason: Constipation Metoprolol Succinate (Toprol Xl) 50 mg PO BID [facility] Last Admin: 01/07/17 09:36 Dose: 50 mg Pantoprazole Sodium (Protonix Ec Tab) 40 mg PO DAILY [facility] Last Admin: 01/07/17 09:34 Dose: 40 mg Sodium Bicarbonate (Sodium Bicarbonate Tab) 650 mg PO Q8 [facility] Last Admin: 01/07/17 09:36 Dose: 650 mg Warfarin Sodium (Coumadin) 5 mg PO QD5 [facility] PRN Reason: Protocol Stop: 01/07/17 17:01 - Labs Labs: 01/07/17 08:15 01/07/17 06:15 PT 13.9 SECONDS (9.6-11.2) H 01/07/17 08:53 INR 1.34 (0.92-1.08) H 01/07/17 08:53
[2017-01-07 17:25] LABS: RBC URINE 11 /hpf (0-3); URINE BILIRUBIN NEGATIVE (NEGATIVE); URINE BLOOD SMALL (NEGATIVE); URINE COLOR YELLOW (YELLOW); URINE GLUCOSE (UA) 50 mg/dL (Normal); URINE KETONE NEGATIVE (NEGATIVE); URINE LEUKOCYTE ESTERASE LARGE Leu/uL (Negative); URINE PROTEIN 100 mg/dL (NEGATIVE); URINE UROBILINOGEN 0.2-1.0 mg/dL (0.2-1.0); WBC CLUMPS MANY /hpf; WBC URINE 534 /hpf (0-5)
[2017-01-07] MEDS: Sodium Chloride 0.45% 1,000 ML IV SCH (17:39)
[2017-01-08] MEDS: Albuterol-Ipratrop 3 mg / 0.5 (3 ml) UD INH SCH ×4 (01:00→19:25)
[2017-01-08] MEDS: Insulin Regular 100 units/ml SC SCH ×4 (06:41→21:23)
--- NOTE | 2017-01-08 08:38 | PN ---
DATE: 01/07/2017 The patient is located in room 405, bed 1. REQUESTED BY: Dr. Francois Rothman. REASON FOR FOLLOWUP: Acute renal failure, chronic kidney disease stage IV. The patient is an 86-year-old elderly female with a past medical history significant for hypertension, chronic kidney disease stage IV, CVA, recurrent UTIs, who was brought in by family with altered mental status, and found to have a urinary tract infection, and also dehydrated and started on IV antibiotics and gentle IV hydration. The patient is still somewhat confused. The patient does not remember me seeing her yesterday evening. Later on the patient was able to remember last night events. The patient is not in acute distress and denies any chest pain, denies any palpitation. Denies any abdominal pain, denies any nausea, vomiting. Denies any shortness of breath. PHYSICAL EXAMINATION: VITAL SIGNS: Blood pressure 168/95, and earlier blood pressure was 135/84. Pulse 87, respiration 20, temperature 97.8, saturation 97%. Height 5 feet 7 inches, and weight is 185 pounds. HENT AND PHYSICAL EXAMINATION: The patient is an 86-year-old elderly female, moderately built, moderately nourished, not in acute distress. HENT: Pupils normal, reactive to light and accommodation. Conjunctivae pink, sclerae anicteric. Tongue is slightly dry. Trachea is midline. LUNGS: Symmetric on both sides. Bilateral breath sounds present. Clear on auscultation. CARDIOVASCULAR SYSTEM: [place] at the 5th intercostal space midclavicular line. S1 and S2 audible. No murmur or gallop. ABDOMEN: Normal in appearance, soft, tympanic. No guarding, no rigidity, no hepatosplenomegaly. CENTRAL NERVOUS SYSTEM: The patient is alert, awake, oriented x 2-3. Sensory and motor system is within normal limits. Cranial nerves II-XII grossly intact. EXTREMITIES: No cyanosis, no clubbing, no edema. HER LABORATORY DATA AND CURRENT MEDICATIONS INCLUDE FOLLOWS: Hydralazine 50 mg p.o. t.i.d., Atarax 25 mg p.o. daily, Catapres 0.1 mg p.o. t.i.d., Colace 100 mg p.o. daily, and amiodarone 100 mg p.o. daily, DuoNeb inhaler 3 mL q. 6 hours inhaler, and milk of magnesia 30 mL p.o. q.i.d. p.r.n., Norvasc 2.5 mg p.o. daily, Zosyn 3.375 g q. 12 hours, and Protonix 40 mg daily , sodium bicarb 650 mg p.o. q. 8 hours, and Toprol-XL 50 mg p.o. b.i.d., and allopurinol 100 mg p.o. daily, Coumadin 5 mg x 1 dose today. LABORATORY DATA INCLUDE FOLLOWS: As of 01/07/2017: WBC 10, hemoglobin 13.5 , hematocrit is 41.1, platelets are 235. PT 13.9, INR is 1.34. Sodium 138, potassium 4.5, chloride 100, CO2 of 01, and BUN 80, creatinine 5.7, and glucose 103, and calcium is 10.3, and free thyroxine is 1.72. TSH is 3.72. Urine analysis as of 01/07/2017: Yellow, cloudy, pH 6, specific gravity 1012, protein 100, and glucose 50, and ketones negative, and blood is small, nitrites are negative, and bilirubin negative, and urobilinogen 0.2 to 1.0. Leukocyte esterase is large, and RBC 11, and WBC clumps many, WBC is 534. Urine osmolality 392, urine creatinine is 52.8, urine sodium 74, urine potassium is 32. Blood culture x 1 negative as of 01/04/2017, and urine culture as of , positive for Streptococcus anginosus and Staph aureus. In summary, the patient is an 86-year-old elderly female with a history of hypertension, chronic kidney disease stage IV, recurrent urinary tract infections, breast carcinoma status post surgery long time ago, who was admitted with altered mental status. The patient is being treated for possible dehydration, and also the infection. 1. Acute on chronic kidney disease stage IV. Renal function is slightly better today with gentle hydration. Will continue IV fluids half-normal saline at 50 mL per hour. 2. Metabolic acidosis. Continue sodium bicarbonate 650 three times a day, and bicarbonate is slightly better today. 3. Urinary tract infection. Continue IV antibiotic Zosyn as per ID. No need for emergency dialysis at this time. Continue to monitor the BMP and renal function daily. Will follow with you. Thank you for allowing me to participate in your patient' s care. Discussed the case with the patient's primary reading assistant, Dr. Diamond Dotson. Vinny Caballero MD cc: [phone] TT: 01/07/2017 20:18:14 Confirmation # [id number] Dictation # [id number] MTDD
[2017-01-08 08:54] LABS: CALCIUM 10.4 mg/dL (8.4-10.2)
[2017-01-08 09:00] LABS: POTASSIUM 5.3 MMOL/L (3.6-5.0)
[2017-01-08] MEDS: Pantoprazole 40 mg EC Tab PO SCH (09:01)
[2017-01-08] MEDS: Piperacillin/Tazobact 3.375 GM in Sodium Chloride 0.9% 100 ML IVPB SCH ×2 (09:03→21:18)
[2017-01-08] MEDS: Metoprolol Succinate 50 mg XL Tab PO SCH ×2 (09:03→16:44)
--- NOTE | 2017-01-08 09:12 | CP.PCM.PN ---
Subjective - Date & Time of Evaluation Date of Evaluation: 01/08/17 Time of Evaluation: 09:12 - Subjective Subjective: pt seen and examined, follow up consult is dictated #[id number] continue ivf 1/2 ns at 50 ml/hr check pth,po4, will add renvela 800 mg po tid with food Objective - Vital Signs/Intake and Output Vital Signs (last 24 hours): Temp Pulse Resp BP Pulse Ox 98.6 F 89 20 160/91 H 97 01/08/17 08:00 01/08/17 09:04 01/08/17 08:00 01/08/17 09:04 01/08/17 08:00 - Medications Medications: Current Medications Albuterol/Ipratropium (Duoneb 3 Mg/0.5 Mg (3 Ml) Ud) 3 ml INH RQ6 [facility] Last Admin: 01/08/17 07:49 Dose: 3 ml Allopurinol (Zyloprim) 100 mg PO DAILY [facility] Last Admin: 01/08/17 09:03 Dose: 100 mg Amiodarone HCl (Cordarone) 100 mg PO DAILY [facility] Last Admin: 01/08/17 09:04 Dose: 100 mg Amlodipine Besylate (Norvasc) 2.5 mg PO DAILY [facility] Last Admin: 01/08/17 09:02 Dose: 2.5 mg Clonidine HCl (Catapres) 0.1 mg PO TID PRN PRN Reason: bp systolic greater than 170 Docusate Sodium (Colace) 100 mg PO DAILY PRN PRN Reason: Constipation Hydralazine HCl (Apresoline) 50 mg PO TID [facility] Last Admin: 01/08/17 09:01 Dose: 50 mg Hydroxyzine HCl (Atarax) 25 mg PO DAILY [facility] Last Admin: 01/08/17 09:02 Dose: 25 mg Piperacillin Sod/Tazobactam (Sod 3.375 gm/ Sodium Chloride) 100 mls @ 100 mls/ hr IVPB Q12 [facility] Last Admin: 01/08/17 09:03 Dose: 100 mls/hr Insulin Human Regular (Humulin R) 0 units SC ACHS [facility] PRN Reason: Protocol Last Admin: 01/08/17 06:41 Dose: Not Given Magnesium Hydroxide (Milk Of Magnesia) 30 ml PO QID PRN PRN Reason: Constipation Metoprolol Succinate (Toprol Xl) 50 mg PO BID [facility] Last Admin: 01/08/17 09:03 Dose: 50 mg Pantoprazole Sodium (Protonix Ec Tab) 40 mg PO DAILY [facility] Last Admin: 01/08/17 09:01 Dose: 40 mg Sodium Bicarbonate (Sodium Bicarbonate Tab) 650 mg PO Q8 [facility] Last Admin: 01/08/17 09:04 Dose: 650 mg - Labs Labs: 01/07/17 08:15 01/08/17 06:00 PT 15.1 SECONDS (9.6-11.2) H 01/08/17 06:00 INR 1.45 (0.92-1.08) H 01/08/17 06:00
--- NOTE | 2017-01-08 13:53 | CP.PCM.PN ---
Subjective - Date & Time of Evaluation Date of Evaluation: 01/08/17 Time of Evaluation: 13:56 - Subjective Subjective: STILL CONFUSED Objective - Vital Signs/Intake and Output Vital Signs (last 24 hours): Temp Pulse Resp BP Pulse Ox 98.6 F 82 20 112/68 97 01/08/17 08:00 01/08/17 13:25 01/08/17 08:00 01/08/17 13:25 01/08/17 08:00 - Medications Medications: Current Medications Albuterol/Ipratropium (Duoneb 3 Mg/0.5 Mg (3 Ml) Ud) 3 ml INH RQ6 [facility] Last Admin: 01/08/17 13:15 Dose: 3 ml Allopurinol (Zyloprim) 100 mg PO DAILY [facility] Last Admin: 01/08/17 09:03 Dose: 100 mg Amiodarone HCl (Cordarone) 100 mg PO DAILY [facility] Last Admin: 01/08/17 09:04 Dose: 100 mg Amlodipine Besylate (Norvasc) 2.5 mg PO DAILY [facility] Last Admin: 01/08/17 09:02 Dose: 2.5 mg Clonidine HCl (Catapres) 0.1 mg PO TID PRN PRN Reason: bp systolic greater than 170 Docusate Sodium (Colace) 100 mg PO DAILY PRN PRN Reason: Constipation Hydralazine HCl (Apresoline) 50 mg PO TID [facility] Last Admin: 01/08/17 13:25 Dose: 50 mg Hydroxyzine HCl (Atarax) 25 mg PO DAILY [facility] Last Admin: 01/08/17 09:02 Dose: 25 mg Piperacillin Sod/Tazobactam (Sod 3.375 gm/ Sodium Chloride) 100 mls @ 100 mls/ hr IVPB Q12 [facility] Last Admin: 01/08/17 09:03 Dose: 100 mls/hr Insulin Human Regular (Humulin R) 0 units SC ACHS [facility] PRN Reason: Protocol Last Admin: 01/08/17 13:17 Dose: Not Given Magnesium Hydroxide (Milk Of Magnesia) 30 ml PO QID PRN PRN Reason: Constipation Metoprolol Succinate (Toprol Xl) 50 mg PO BID [facility] Last Admin: 01/08/17 09:03 Dose: 50 mg Pantoprazole Sodium (Protonix Ec Tab) 40 mg PO DAILY [facility] Last Admin: 01/08/17 09:01 Dose: 40 mg Sodium Bicarbonate (Sodium Bicarbonate Tab) 650 mg PO Q8 [facility] Last Admin: 01/08/17 09:04 Dose: 650 mg - Labs Labs: 01/07/17 08:15 01/08/17 06:00 PT 15.1 SECONDS (9.6-11.2) H 01/08/17 06:00 INR 1.45 (0.92-1.08) H 01/08/17 06:00 - Constitutional Appears: Chronically Ill - Head Exam Head Exam: ATRAUMATIC, NORMAL INSPECTION, NORMOCEPHALIC - Eye Exam Eye Exam: EOMI, Normal appearance, PERRL Pupil Exam: NORMAL ACCOMODATION, PERRL - ENT Exam ENT Exam: Mucous Membranes Moist, Normal Exam - Neck Exam Neck Exam: Full ROM, Normal Inspection. absent: Lymphadenopathy - Respiratory Exam Respiratory Exam: Clear to Ausculation Bilateral, NORMAL BREATHING PATTERN - Cardiovascular Exam Cardiovascular Exam: Irregular Rhythm, +S1, +S2. absent: Murmur - GI/Abdominal Exam GI & Abdominal Exam: Soft, Normal Bowel Sounds. absent: Tenderness - Rectal Exam Rectal Exam: NORMAL INSPECTION - Extremities Exam Extremities Exam: Full ROM, Normal Capillary Refill, Normal Inspection. absent : Joint Swelling, Pedal Edema - Back Exam Back Exam: NORMAL INSPECTION - Neurological Exam Neurological Exam: Alert, Awake, CN II-XII Intact - Psychiatric Exam Psychiatric exam: Normal Affect, Normal Mood - Skin Skin Exam: Dry, Intact, Normal Color, Warm Assessment and Plan - Assessment and Plan (Free Text) Assessment: UTI ALTERED MENTAL STATUS RENAL FAILURE CARDIAC ARRYTHMIAS Plan: CASE DISCUSSED WITH SON--GWYN--WILL CONTINUE PRESENT RX CONSIDER TCU PRIOR TO D/C HOME
--- NOTE | 2017-01-08 22:50 | PN ---
DATE: 01/08/2017 The patient was seen again today in followup. She remains hemodynamically stable. Her mental status still continues to be not at baseline. She recognizes me, however, she does appear to be somewhat d isoriented in terms of date and time, and orientation. She denies any chest pain, shortness of breat h, dizziness or light-headedness. On review of current lab work, the patient has an INR today of 1.45. Potassium earlier this morning was 5.3, BUN and creatinine is slightly better at 5.6 and 82, glucose of 113. On examination, temperature is 98.3, pulse rate of 82, blood pressure is 112/68, respiratory rate of 20. In general she is a well-developed, well-nourished, somewhat confused female in no acute di stress, able to speak in complete sentences. EXAMINATION OF HER HEAD: Normocephalic, atraumatic. There is no mart facial asymmetry. NECK: Supple. CHEST: Clear to auscultation bilaterally. CARDIOVASCULAR EXAMINATION: Regular rate and rhythm. S1, S2. No S3 or S4. ABDOMEN: Soft, nontender, nondistended, positive bowel sounds. EXTREMITIES: No cyanosis, clubbing, or edema. CURRENT MEDICATIONS: As follows: Albuterol, ipratropium nebulizers q. 6 hours, allopurinol 100 mg p .o. daily, amiodarone 100 mg p.o. daily, amlodipine 2.5 mg p.o. daily, clonidine 0.1 mg t.i.d. p.r.n. for systolic blood pressure greater than 150, hydralazine 50 mg p.o. 3 times a day, hydroxyzine 25 m g p.o. daily, insulin sliding scale, metoprolol 50 mg p.o. b.i.d., Protonix 40 mg p.o. daily, piperac illin/tazobactam 3.375 g in at 100 q. 12 hours. ASSESSMENT AND PLAN: 1. Atrial fibrillation, status post remote transesophageal echocardiogram, cardioversion, and amiodar one therapy. She remains in normal sinus rhythm. Re-anticoagulation efforts are being taken at this point. 2. Coronary artery disease, atherosclerotic heart disease. The patient with prior history of documen brissa ischemia. We will continue current management, which includes beta blockade hypertension managem ent. At this point, there is no evidence of acute coronary issues. We may consider antiplatelet the rapy. 3. Hypertension, which at this point appears to be somewhat better controlled. We will continue her current medications. 4. History of mitral regurgitation, which on prior studies has been [id number]. We will cont inue conservative management. 5. Renal insufficiency, which appears to be worse than baseline. Further management as per Dr. Mer mcginnis as well as Dr. Rothman. I have discussed the case with Dr. Rothman. Thank you for allowing me to participate in the care of your patient. Please do not hesitate to call for any questions in regards to her care. Yours sincerely, Brayan Jenkins MD cc:Francois Rothman MD [id number] TT: 01/08/2017 22:50:22 Confirmation # [id number] Dictation # [id number] isma
--- NOTE | 2017-01-08 23:16 | PN ---
DATE: 01/08/2017 The patient is located in room 405, bed 1. REQUESTED BY: Dr. Francois Rothman. REASON FOR FOLLOWUP: Acute renal failure, chronic kidney disease, and UTI, admitted for further eval uation. The patient is an 86-year-old elderly female with a past medical history significant for hy pertension, history of CVA, breast CA status post left breast surgery long time ago when she was abou t 19 years old, and chronic kidney disease stage IV, who was admitted with altered mental status and found to be dehydrated, and also found to have a UTI on IV antibiotics. The patient is not in acute distress and denies any chest pain, palpitations. Denies any shortness of breath, not in acute distr ess this morning. VITAL SIGNS: This morning as follows: Blood pressure 160/91, pulse 89, respirations 20, temperature 98.6, saturation 97%. Height 5 feet 7 inches, and weight is 185 pounds. HENT AND PHYSICAL EXAMINATION: The patient is an 86-year-old elderly female, moderately built, moder ately nourished, not in acute distress. HENT: Pupils normal, and reacting to light. Conjunctivae pink, sclerae anicteric. Tongue is moist. Trachea is midline. LUNGS: Symmetric on both sides. Bilateral breath sounds present. Clear on auscultation. CARDIOVASCULAR SYSTEM: [place] in the 5th intercostal space midclavicular line. S1 and S2 audible. No murmur, no gallop. ABDOMEN: Normal in appearance, soft, tympanic. No guarding, no rigidity, no hepatosplenomegaly. CENTRAL NERVOUS SYSTEM: The patient is alert, awake, oriented x 2-3. Sensory and motor system is gr ossly within normal limits. EXTREMITIES: No cyanosis, no clubbing, no edema. CURRENT MEDICATIONS: Include as follows: Hydralazine 50 mg p.o. t.i.d., Atarax 25 mg p.o. daily, Ca tapres 0.1 mg p.o. t.i.d., Colace 100 mg daily, and amiodarone 100 mg p.o. daily, DuoNeb inhaler, mil k of magnesia, Norvasc 2.5 mg daily, and Zosyn 3.375 g q. 12 hours, Protonix 40 mg daily, sodium bica rbonate 650 t.i.d., allopurinol 100 mg daily, and Toprol-XL 50 mg p.o. b.i.d. LABORATORY DATA: Include as follows as of 01/08/2017: PT 15.1, INR 1.45. Sodium 138, potassium 5.3 , chloride 105, CO2 of 15, BUN 82, creatinine 5.6, and glucose is 105, calcium 10.4, and phosphorus 5 .8. In summary, the patient is an 86-year-old obese elderly female with a history of hypertensi on, CVA, chronic kidney disease with recurrent urinary tract infection, was admitted with altered men johnny status, and increased BUN and creatinine, being treated for urinary tract infection. 1. Renal failure, [id number] kidney disease, most likely secondary to intravascular volume depl etion. 2. Urinary tract infection. 3. Metabolic acidosis, most likely secondary to renal failure. Cannot rule out gastrointestinal loss as a cause for the metabolic acidosis as the patient has a high anion gap, and also hyperchloremic m etabolic acidosis. PLAN: Will continue gentle IV hydration, half-normal saline at 50 mL per hour, and increase p.o. flu ids, and also will add Renvela 800 mg p.o. t.i.d. powder, and repeat BMP in a.m. and also will check PTH intact level. Continue IV antibiotics as per ID recommendation. Thank you for allowing me to participate in your patient's care. Vinny Caballero MD cc: [id number] TT: 01/08/2017 23:15:27 Confirmation # [id number] Dictation # [id number] jn
[2017-01-09] MEDS: Albuterol-Ipratrop 3 mg / 0.5 (3 ml) UD INH SCH ×4 (02:03→19:54)
[2017-01-09] MEDS: Insulin Regular 100 units/ml SC SCH ×4 (07:07→22:17)
[2017-01-09] MEDS: Pantoprazole 40 mg EC Tab PO SCH (08:53)
[2017-01-09] MEDS: Sevelamer Carb 0.8 gm/Packet PO SCH ×3 (08:54→17:09)
[2017-01-09] MEDS: Metoprolol Succinate 50 mg XL Tab PO SCH ×2 (08:55→17:11)
[2017-01-09 09:16] LABS: CALCIUM 10.1 mg/dL (8.4-10.2); POTASSIUM 4.5 MMOL/L (3.6-5.0)
[2017-01-09] MEDS: Piperacillin/Tazobact 3.375 GM in Sodium Chloride 0.9% 100 ML IVPB SCH ×2 (09:20→22:08)
--- NOTE | 2017-01-09 11:08 | CP.PCM.PN ---
Subjective - Date & Time of Evaluation Date of Evaluation: 01/09/17 Time of Evaluation: 11:07 - Subjective Subjective: pt seen and examined, follow up consult is dictated #[id number] continue ivf 1/2 ns at 50 ml/hr bmp daily Objective - Vital Signs/Intake and Output Vital Signs (last 24 hours): Temp Pulse Resp BP Pulse Ox 97.4 F L 86 20 184/93 H 97 01/09/17 08:00 01/09/17 09:46 01/09/17 08:00 01/09/17 09:46 01/09/17 08:00 - Medications Medications: Current Medications Albuterol/Ipratropium (Duoneb 3 Mg/0.5 Mg (3 Ml) Ud) 3 ml INH RQ6 [facility] Last Admin: 01/09/17 08:03 Dose: 3 ml Allopurinol (Zyloprim) 100 mg PO DAILY [facility] Last Admin: 01/09/17 08:56 Dose: 100 mg Amiodarone HCl (Cordarone) 100 mg PO DAILY [facility] Last Admin: 01/09/17 08:50 Dose: 100 mg Amlodipine Besylate (Norvasc) 2.5 mg PO DAILY [facility] Last Admin: 01/09/17 08:52 Dose: 2.5 mg Clonidine HCl (Catapres) 0.1 mg PO TID PRN PRN Reason: bp systolic greater than 170 Last Admin: 01/09/17 09:46 Dose: 0.1 mg Docusate Sodium (Colace) 100 mg PO DAILY PRN PRN Reason: Constipation Hydralazine HCl (Apresoline) 50 mg PO TID [facility] Last Admin: 01/09/17 08:48 Dose: 50 mg Hydroxyzine HCl (Atarax) 25 mg PO DAILY [facility] Last Admin: 01/09/17 08:49 Dose: 25 mg Piperacillin Sod/Tazobactam (Sod 3.375 gm/ Sodium Chloride) 100 mls @ 100 mls/ hr IVPB Q12 [facility] Last Admin: 01/09/17 09:20 Dose: 100 mls/hr Insulin Human Regular (Humulin R) 0 units SC ACHS [facility] PRN Reason: Protocol Last Admin: 01/09/17 07:07 Dose: Not Given Magnesium Hydroxide (Milk Of Magnesia) 30 ml PO QID PRN PRN Reason: Constipation Metoprolol Succinate (Toprol Xl) 50 mg PO BID [facility] Last Admin: 01/09/17 08:55 Dose: 50 mg Pantoprazole Sodium (Protonix Ec Tab) 40 mg PO DAILY [facility] Last Admin: 01/09/17 08:53 Dose: 40 mg Sevelamer Carbonate (Renvela) 0.8 gm PO TIDWM [facility] Last Admin: 01/09/17 08:54 Dose: 0.8 gm Sodium Bicarbonate (Sodium Bicarbonate Tab) 650 mg PO Q8 [facility] Last Admin: 01/09/17 08:54 Dose: 650 mg - Labs Labs: 01/07/17 08:15 01/09/17 08:35 PT 15.1 SECONDS (9.6-11.2) H 01/09/17 08:35 INR 1.45 (0.92-1.08) H 01/09/17 08:35
--- NOTE | 2017-01-09 11:14 | CP.PCM.PN ---
Subjective - Date & Time of Evaluation Date of Evaluation: 01/09/17 Time of Evaluation: 11:14 - Subjective Subjective: MORE ALERT AND ORIENTED TODAY NO APPARENT DISTRESS CASE DISCUSSED WITH SON --GWYN Objective - Vital Signs/Intake and Output Vital Signs (last 24 hours): Temp Pulse Resp BP Pulse Ox 97.4 F L 86 20 184/93 H 97 01/09/17 08:00 01/09/17 09:46 01/09/17 08:00 01/09/17 09:46 01/09/17 08:00 - Medications Medications: Current Medications Albuterol/Ipratropium (Duoneb 3 Mg/0.5 Mg (3 Ml) Ud) 3 ml INH RQ6 [facility] Last Admin: 01/09/17 08:03 Dose: 3 ml Allopurinol (Zyloprim) 100 mg PO DAILY [facility] Last Admin: 01/09/17 08:56 Dose: 100 mg Amiodarone HCl (Cordarone) 100 mg PO DAILY [facility] Last Admin: 01/09/17 08:50 Dose: 100 mg Amlodipine Besylate (Norvasc) 2.5 mg PO DAILY [facility] Last Admin: 01/09/17 08:52 Dose: 2.5 mg Clonidine HCl (Catapres) 0.1 mg PO TID PRN PRN Reason: bp systolic greater than 170 Last Admin: 01/09/17 09:46 Dose: 0.1 mg Docusate Sodium (Colace) 100 mg PO DAILY PRN PRN Reason: Constipation Hydralazine HCl (Apresoline) 50 mg PO TID [facility] Last Admin: 01/09/17 08:48 Dose: 50 mg Hydroxyzine HCl (Atarax) 25 mg PO DAILY [facility] Last Admin: 01/09/17 08:49 Dose: 25 mg Piperacillin Sod/Tazobactam (Sod 3.375 gm/ Sodium Chloride) 100 mls @ 100 mls/ hr IVPB Q12 [facility] Last Admin: 01/09/17 09:20 Dose: 100 mls/hr Sodium Chloride (Sodium Chloride 0.45%) 1,000 mls @ 50 mls/hr IV .Q20H [facility] Stop: 01/11/17 11:16 Insulin Human Regular (Humulin R) 0 units SC ACHS [facility] PRN Reason: Protocol Last Admin: 01/09/17 07:07 Dose: Not Given Magnesium Hydroxide (Milk Of Magnesia) 30 ml PO QID PRN PRN Reason: Constipation Metoprolol Succinate (Toprol Xl) 50 mg PO BID [facility] Last Admin: 01/09/17 08:55 Dose: 50 mg Pantoprazole Sodium (Protonix Ec Tab) 40 mg PO DAILY [facility] Last Admin: 01/09/17 08:53 Dose: 40 mg Sevelamer Carbonate (Renvela) 0.8 gm PO TIDWM [facility] Last Admin: 01/09/17 08:54 Dose: 0.8 gm Sodium Bicarbonate (Sodium Bicarbonate Tab) 650 mg PO Q8 [facility] Last Admin: 01/09/17 08:54 Dose: 650 mg - Labs Labs: 01/07/17 08:15 01/09/17 08:35 PT 15.1 SECONDS (9.6-11.2) H 01/09/17 08:35 INR 1.45 (0.92-1.08) H 01/09/17 08:35 - Constitutional Appears: No Acute Distress - Head Exam Head Exam: ATRAUMATIC, NORMAL INSPECTION, NORMOCEPHALIC - Eye Exam Eye Exam: EOMI, Normal appearance, PERRL Pupil Exam: NORMAL ACCOMODATION, PERRL - ENT Exam ENT Exam: Mucous Membranes Moist, Normal Exam - Neck Exam Neck Exam: Full ROM, Normal Inspection. absent: Lymphadenopathy - Respiratory Exam Respiratory Exam: Clear to Ausculation Bilateral, NORMAL BREATHING PATTERN - Cardiovascular Exam Cardiovascular Exam: REGULAR RHYTHM, +S1, +S2. absent: Murmur - GI/Abdominal Exam GI & Abdominal Exam: Soft, Normal Bowel Sounds. absent: Tenderness - Rectal Exam Rectal Exam: NORMAL INSPECTION - Extremities Exam Extremities Exam: Full ROM, Normal Capillary Refill, Normal Inspection. absent : Joint Swelling, Pedal Edema - Back Exam Back Exam: NORMAL INSPECTION - Neurological Exam Neurological Exam: Alert, Awake, CN II-XII Intact, Normal Gait, Oriented x3 - Psychiatric Exam Psychiatric exam: Normal Affect, Normal Mood - Skin Skin Exam: Dry, Intact, Normal Color, Warm Assessment and Plan - Assessment and Plan (Free Text) Assessment: ESRD DEHYDRATION UTI ALTERRED MENTAL STATUS ARRYTHMIAS Plan: CONTINUE IV ANTIBIOTICS AND GENTLE HYDRATION COUMADIN RX--MONITOR INR
[2017-01-09] MEDS: Sodium Chloride 0.45% 1,000 ML IV SCH (12:11)
--- NOTE | 2017-01-09 22:19 | PN ---
DATE: 01/09/2017 The patient is located in room 445, bed 1. The patient is located in room 405, bed 1. REQUESTING PHYSICIAN: Dr. Francois Rothman. REASON FOR FOLLOWUP: Acute renal failure, chronic kidney disease, metabolic acidosis. The patient is an 86-year-old elderly female with a history of hypertension, breast CA, cardiac arrhythmias, and poor LV function, chronic kidney disease stage IV with a baseline creatinine about 4-5, was admitted with altered mental status, and decreased p.o. intake, and worsening renal function, and being treated for UTI. The patient is feeling slightly better today, not in distress. No chest pain, no palpitation, no shortness of breath, no nausea, no vomiting. VITAL SIGNS: This morning as follows: Blood pressure 184/93, pulse 86, respirations 18, temperature 97.7, saturation 98%. Height 5 feet 7 inches, and weight is 180 pounds. HENT AND PHYSICAL EXAMINATION: The patient is an 86-year-old elderly female, moderately built, moderately nourished, not in any distress. HENT: Pupils normal, reactive to light and accommodation. Conjunctivae pink, sclerae anicteric. Tongue is moist. Trachea is midline. LUNGS: Symmetric on both sides. Bilateral breath sounds present. Clear on auscultation. CARDIOVASCULAR SYSTEM: [place] in the 5th intercostal space midclavicular line. S1 and S2 audible. No murmur, no gallop. ABDOMEN: Normal in appearance, soft, tympanic. No guarding, no rigidity. No hepatosplenomegaly. CENTRAL NERVOUS SYSTEM: The patient is alert, awake, oriented x 2-3. Sensory and motor system is within normal limits. Cranial nerves II-XII grossly intact. Sensory and motor system is grossly within normal limits. EXTREMITIES: No cyanosis, no clubbing, no edema. CURRENT MEDICATIONS: Include as follows: IV fluids half -normal saline at 50 mL per hour, Atarax 25 mg p.o. daily, clonidine 0.1 mg p.o. t.i.d., Colace 100 mg p.o. daily, amiodarone 100 mg p.o. daily, DuoNeb inhaler q. 6 hours, magnesium hydroxide 30 mL p.o. q.i.d., amlodipine 2.5 mg p.o. daily, Protonix 40 mg daily, and Renvela 800 mg p.o. t.i.d., sodium bicarb 650 mg p.o. q. 8 hours, and metoprolol 50 mg p.o. b.i.d., allopurinol 100 mg p.o. daily. LABORATORY DATA: Include as follows as of 01/09/2015: PT 15.1, INR 1.4. Sodium 140, potassium 4.5, chloride 103, CO2 of 17, BUN 83, creatinine 5.7, glucose 101, calcium 10.1. In summary, the patient is an 86-year-old elderly female with a history of long-standing hypertension, chronic kidney disease stage IV, cardiac arrhythmias, being treated for urinary tract infection. 1. Acute renal failure on chronic kidney disease stage IV, versus progression of ckd. 2. Urinary tract infection. 3. Metabolic acidosis. 4. Hypertension. Continue her antihypertensive medications, and continue Renvela and sodium bicarb. Continue antibiotics as per Dr. Rothman. Case discussed with Dr. Rothman in rounds. Will follow with you. Thank you for allowing me to participate in your patient's care. Continue IV fluids at 50 mL per hour, and BMP in a.m., and will follow up PTH intact level. Vinny Caballero MD cc: [id number] TT: 01/09/2017 22:18:34 Confirmation # [id number] Dictation # [id number] MTDD
[2017-01-10] MEDS: Albuterol-Ipratrop 3 mg / 0.5 (3 ml) UD INH SCH ×4 (01:01→19:34)
[2017-01-10] MEDS: Insulin Regular 100 units/ml SC SCH ×4 (06:57→22:28)
[2017-01-10 08:18] LABS: CALCIUM 9.2 mg/dL (8.4-10.2); POTASSIUM 4.1 MMOL/L (3.6-5.0)
[2017-01-10] MEDS: Metoprolol Succinate 50 mg XL Tab PO SCH ×2 (09:08→16:48)
[2017-01-10] MEDS: Pantoprazole 40 mg EC Tab PO SCH (09:08)
[2017-01-10] MEDS: Sevelamer Carb 0.8 gm/Packet PO SCH ×3 (09:09→16:47)
[2017-01-10] MEDS: Sodium Chloride 0.45% 1,000 ML IV SCH (09:09)
--- NOTE | 2017-01-10 10:16 | CP.PCM.PN ---
Subjective - Date & Time of Evaluation Date of Evaluation: 01/10/17 Time of Evaluation: 10:16 - Subjective Subjective: SOB IMPROVED NO CHEST PAINS]\ ALERT AND AWAKE Objective - Vital Signs/Intake and Output Vital Signs (last 24 hours): Temp Pulse Resp BP Pulse Ox 97.9 F 76 20 123/73 100 01/10/17 08:00 01/10/17 09:08 01/10/17 08:00 01/10/17 09:08 01/10/17 08:00 - Medications Medications: Current Medications Albuterol/Ipratropium (Duoneb 3 Mg/0.5 Mg (3 Ml) Ud) 3 ml INH RQ6 [facility] Last Admin: 01/10/17 07:35 Dose: 3 ml Allopurinol (Zyloprim) 100 mg PO DAILY [facility] Last Admin: 01/10/17 09:08 Dose: 100 mg Amiodarone HCl (Cordarone) 100 mg PO DAILY [facility] Last Admin: 01/10/17 09:07 Dose: 100 mg Amlodipine Besylate (Norvasc) 2.5 mg PO DAILY [facility] Last Admin: 01/09/17 08:52 Dose: 2.5 mg Clonidine HCl (Catapres) 0.1 mg PO TID PRN PRN Reason: bp systolic greater than 170 Last Admin: 01/10/17 02:24 Dose: 0.1 mg Docusate Sodium (Colace) 100 mg PO DAILY PRN PRN Reason: Constipation Hydralazine HCl (Apresoline) 50 mg PO TID [facility] Last Admin: 01/10/17 09:08 Dose: 50 mg Hydroxyzine HCl (Atarax) 25 mg PO DAILY [facility] Last Admin: 01/10/17 09:09 Dose: 25 mg Sodium Chloride (Sodium Chloride 0.45%) 1,000 mls @ 50 mls/hr IV .Q20H [facility] Stop: 01/11/17 11:16 Last Admin: 01/10/17 09:09 Dose: 50 mls/hr Insulin Human Regular (Humulin R) 0 units SC ACHS [facility] PRN Reason: Protocol Last Admin: 01/10/17 06:57 Dose: Not Given Magnesium Hydroxide (Milk Of Magnesia) 30 ml PO QID PRN PRN Reason: Constipation Metoprolol Succinate (Toprol Xl) 50 mg PO BID [facility] Last Admin: 01/10/17 09:08 Dose: 50 mg Pantoprazole Sodium (Protonix Ec Tab) 40 mg PO DAILY [facility] Last Admin: 01/10/17 09:08 Dose: 40 mg Sevelamer Carbonate (Renvela) 0.8 gm PO TIDWM [facility] Last Admin: 01/10/17 09:09 Dose: 0.8 gm Sodium Bicarbonate (Sodium Bicarbonate Tab) 650 mg PO Q8 [facility] Last Admin: 01/10/17 09:09 Dose: 650 mg Warfarin Sodium (Coumadin) 5 mg PO QD5 [facility] PRN Reason: Protocol Stop: 01/10/17 17:01 - Labs Labs: 01/07/17 08:15 01/10/17 06:00 PT 16.5 SECONDS (9.6-11.2) H 01/10/17 06:00 INR 1.59 (0.92-1.08) H 01/10/17 06:00 - Constitutional Appears: No Acute Distress - Head Exam Head Exam: ATRAUMATIC, NORMAL INSPECTION, NORMOCEPHALIC - Eye Exam Eye Exam: EOMI, Normal appearance, PERRL Pupil Exam: NORMAL ACCOMODATION, PERRL - ENT Exam ENT Exam: Mucous Membranes Moist, Normal Exam - Neck Exam Neck Exam: Full ROM, Normal Inspection. absent: Lymphadenopathy - Respiratory Exam Respiratory Exam: Clear to Ausculation Bilateral, NORMAL BREATHING PATTERN - Cardiovascular Exam Cardiovascular Exam: Irregular Rhythm, +S1, +S2. absent: Murmur - GI/Abdominal Exam GI & Abdominal Exam: Soft, Normal Bowel Sounds. absent: Tenderness - Rectal Exam Rectal Exam: NORMAL INSPECTION - Extremities Exam Extremities Exam: Full ROM, Normal Capillary Refill, Normal Inspection. absent : Joint Swelling, Pedal Edema - Back Exam Back Exam: NORMAL INSPECTION - Neurological Exam Neurological Exam: Alert, Awake, CN II-XII Intact, Normal Gait, Oriented x3 - Psychiatric Exam Psychiatric exam: Normal Affect, Normal Mood - Skin Skin Exam: Dry, Intact, Normal Color, Warm Assessment and Plan - Assessment and Plan (Free Text) Assessment: RENAL FAILURE ARRYTHMIAS UTI ALTERED MENTAL STATUS Plan: CONTINUE IV HYDRATION CONSIDER TRANSFER TO SUBACUTE CARE IN AM IF STABLE
--- NOTE | 2017-01-10 19:44 | CP.PCM.PN ---
Subjective - Date & Time of Evaluation Date of Evaluation: 01/10/17 Time of Evaluation: 19:42 - Subjective Subjective: pt seen and examined, follow up consult is dictated #[id number] Objective - Vital Signs/Intake and Output Vital Signs (last 24 hours): Temp Pulse Resp BP Pulse Ox 97.9 F 88 20 106/66 95 01/10/17 16:00 01/10/17 16:48 01/10/17 16:00 01/10/17 16:48 01/10/17 16:00 Intake and Output: 01/10/17 01/11/17 18:59 06:59 Intake Total 1250 Balance 1250 - Medications Medications: Current Medications Albuterol/Ipratropium (Duoneb 3 Mg/0.5 Mg (3 Ml) Ud) 3 ml INH RQ6 [facility] Last Admin: 01/10/17 19:34 Dose: 3 ml Allopurinol (Zyloprim) 100 mg PO DAILY [facility] Last Admin: 01/10/17 09:08 Dose: 100 mg Amiodarone HCl (Cordarone) 100 mg PO DAILY [facility] Last Admin: 01/10/17 09:07 Dose: 100 mg Amlodipine Besylate (Norvasc) 2.5 mg PO DAILY [facility] Last Admin: 01/10/17 13:16 Dose: 2.5 mg Clonidine HCl (Catapres) 0.1 mg PO TID PRN PRN Reason: bp systolic greater than 170 Last Admin: 01/10/17 02:24 Dose: 0.1 mg Docusate Sodium (Colace) 100 mg PO DAILY PRN PRN Reason: Constipation Hydralazine HCl (Apresoline) 50 mg PO TID [facility] Last Admin: 01/10/17 16:47 Dose: Not Given Hydroxyzine HCl (Atarax) 25 mg PO DAILY [facility] Last Admin: 01/10/17 09:09 Dose: 25 mg Sodium Chloride (Sodium Chloride 0.45%) 1,000 mls @ 50 mls/hr IV .Q20H [facility] Stop: 01/11/17 11:16 Last Admin: 01/10/17 09:09 Dose: 50 mls/hr Insulin Human Regular (Humulin R) 0 units SC ACHS [facility] PRN Reason: Protocol Last Admin: 01/10/17 17:31 Dose: 1 unit Magnesium Hydroxide (Milk Of Magnesia) 30 ml PO QID PRN PRN Reason: Constipation Metoprolol Succinate (Toprol Xl) 50 mg PO BID [facility] Last Admin: 01/10/17 16:48 Dose: Not Given Pantoprazole Sodium (Protonix Ec Tab) 40 mg PO DAILY [facility] Last Admin: 01/10/17 09:08 Dose: 40 mg Sevelamer Carbonate (Renvela) 0.8 gm PO TIDWM [facility] Last Admin: 01/10/17 16:47 Dose: 0.8 gm Sodium Bicarbonate (Sodium Bicarbonate Tab) 650 mg PO Q8 [facility] Last Admin: 01/10/17 16:47 Dose: 650 mg - Labs Labs: 01/07/17 08:15 01/10/17 06:00 PT 17.4 SECONDS (9.6-11.2) H 01/10/17 12:00 INR 1.67 (0.92-1.08) H 01/10/17 12:00
--- NOTE | 2017-01-10 23:15 | PN ---
DATE: 01/10/2017 The patient is located in room 405, bed 1. REQUESTED BY: Dr. Francois Rothman. REASON FOR FOLLOWUP: Renal failure and metabolic acidosis and UTI. HISTORY OF PRESENT ILLNESS: The patient is an 86-year-old elderly female with a past medic al history significant for longstanding hypertension, cardiac arrhythmias, chronic kidney disease sta ge IV-V with a baseline creatinine about 4-5 with recurrent UTIs and poor LV function, was admitted w [facility] the chief complaints of altered mental status and also weakness and found to have a UTI, on IV an tibiotics. The patient is still confused from time to time. The patient is not in acute distress. Denies any headache, dizziness. Denies any chest pain, palpitations. Denies any fever or cough. No abdominal pain, no nausea, vomiting, diarrhea. PHYSICAL EXAMINATION: VITAL SIGNS: Blood pressure 106/66, pulse 88, respiration 20, temperature 97.9, saturation 95%, heig ht 5 feet 7 inches and weight is 185 pounds. GENERAL: The patient is an 86-year-old elderly female, well built, well nourished, not in acute distress. HEENT: Pupils normal, reactive to light and accommodation. Conjunctivae are pink. Sclerae anicteri c. Tongue is moist. NECK: Trachea midline. LUNGS: Symmetric on both sides. Bilateral breath sounds present. Clear on auscultation. CARDIOVASCULAR: [place] in the fifth intercostal space midclavicular line. S1 and S2 audible. No murm ur, no gallop. ABDOMEN: Normal in appearance, soft, tympanic. No guarding, no rigidity. No hepatosplenomegaly. CENTRAL NERVOUS SYSTEM: The patient is alert, awake, oriented x 2. Sensory and motor system is with in normal limits. Cranial nerves II through XII grossly intact. EXTREMITIES: No cyanosis, no clubbing, no edema. CURRENT MEDICATIONS: Include as follows: IV fluids half normal saline at 50 mL per hour, hydralazin e 50 mg p.o. t.i.d., Atarax 25 mg p.o. daily, clonidine 0.1 mg p.o. t.i.d., Colace 100 mg p.o. daily, amiodarone 100 mg p.o. daily, DuoNeb inhaler q. 6 hours, magnesium hydroxide 30 mL p.o. q.i.d. p.r.n ., amlodipine 2.5 mg p.o. daily, Protonix 40 mg daily, , Renvela 800 mg p.o. t.i.d., sodium bica rbonate 650 mg q. 8 hours and metoprolol 50 mg p.o. b.i.d., allopurinol 100 mg p.o. daily. LABORATORY DATA: Include as follows: As of 01/10/2017. PT 16.5, INR is 1.5, sodium 136, potassium is 4.1, chloride 101, CO2 of 19, BUN 80, creatinine 5.6, glucose 99, calcium 9.2. SUMMARY: The patient is an 86-year-old elderly female with a history of longstanding hyper tension, cardiac arrhythmia, chronic kidney disease with a baseline creatinine between 4-5 who was ad mitted with UTI with altered mental status and low bicarbonate. 1. Chronic kidney disease stage IV-V with a creatinine about 5.6, GFR is about 7 now; cannot rule ou t acute on chronic versus progression of the chronic kidney disease to stage V and end-stage renal di sease. 2. Metabolic acidosis secondary to renal failure. 3. Hypertension. 4. Urinary tract infection. PLAN: Continue gentle IV hydration and repeat BMP and CBC in a.m. and check PTH intact level. The p atient will benefit from the renal replacement therapy, but the patient's family is reluctant to unde rgo the patient renal replacement therapy. If the patient's family decide, we will consider the hemo dialysis. Thank you for allowing me to participate in your patient's care. Vinny Caballero MD cc: [phone] TT: 01/10/2017 23:14:05 Confirmation # [id number] Dictation # [id number] erika
[2017-01-11] MEDS: Albuterol-Ipratrop 3 mg / 0.5 (3 ml) UD INH SCH ×3 (01:09→13:45)
[2017-01-11] MEDS: Insulin Regular 100 units/ml SC SCH ×2 (06:43→12:33)
[2017-01-11 08:27] VITALS: RESP 18
[2017-01-11] MEDS: Sevelamer Carb 0.8 gm/Packet PO SCH ×2 (08:57→13:06)
[2017-01-11] MEDS: Metoprolol Succinate 50 mg XL Tab PO SCH (08:58)
[2017-01-11] MEDS: Pantoprazole 40 mg EC Tab PO SCH (08:58)
--- NOTE | 2017-01-11 09:32 | CP.PCM.DIS ---
Provider - Provider Date of Admission: 01/04/17 15:36 Attending physician: Francois Rothman MD Time Spent in preparation of Discharge (in minutes): 30 Diagnosis - Discharge Diagnosis (1) Altered mental status Status: Acute (2) Renal insufficiency Status: Acute (3) UTI (urinary tract infection) Status: Acute (4) Atrial fibrillation Status: Acute (5) Dehydration Status: Acute (6) Hypertension Status: Acute Hospital Course - Lab Results Lab Results: Most Recent Lab Values WBC 10.0 K/uL (4.8-10.8) 01/07/17 08:15 RBC 4.15 Mil/uL (3.80-5.20) 01/07/17 08:15 Hgb 13.5 g/dL (12.0-16.0) 01/07/17 08:15 Hct 41.1 % (34.0-47.0) 01/07/17 08:15 MCV 99.1 fl (81.0-99.0) H 01/07/17 08:15 MCH 32.6 pg (27.0-31.0) H 01/07/17 08:15 MCHC 32.9 g/dL (33.0-37.0) L 01/07/17 08:15 RDW 14.9 % (11.5-14.5) H 01/07/17 08:15 Plt Count 235 K/uL (130-400) 01/07/17 08:15 MPV 8.2 fl (7.2-11.7) 01/04/17 11:38 Neut % (Auto) 66.9 % (50.0-75.0) 01/04/17 11:38 Lymph % (Auto) 15.5 % (20.0-40.0) L 01/04/17 11:38 [place] % (Auto) 7.6 % (0.0-10.0) 01/04/17 11:38 Eos % (Auto) 9.2 % (0.0-4.0) H 01/04/17 11:38 Baso % (Auto) 0.8 % (0.0-2.0) 01/04/17 11:38 Neut # 6.8 K/uL (1.8-7.0) 01/04/17 11:38 Lymph # 1.6 K/uL (1.0-4.3) 01/04/17 11:38 [place] # 0.8 K/uL (0.0-0.8) 01/04/17 11:38 Eos # 0.9 K/uL (0.0-0.7) H 01/04/17 11:38 Baso # 0.1 K/uL (0.0-0.2) 01/04/17 11:38 PT 17.4 SECONDS (9.6-11.2) H 01/10/17 12:00 INR 1.67 (0.92-1.08) H 01/10/17 12:00 pO2 28 mm/Hg (30-55) L 01/04/17 11:10 VBG pH 7.31 (7.32-7.43) L 01/04/17 11:10 VBG pCO2 49 mmHg (40-60) 01/04/17 11:10 VBG HCO3 21.9 mmol/L 01/04/17 11:10 VBG Total CO2 26.2 mmol/L (22-28) 01/04/17 11:10 VBG O2 Sat (Calc) 56.5 % (40-65) 01/04/17 11:10 VBG Base Excess -2.1 mmol/L (0.0-2.0) L 01/04/17 11:10 VBG Potassium 9.2 mmol/L (3.6-5.2) H* 01/04/17 11:10 A-a O2 Difference 60.0 mm/Hg 01/04/17 11:10 Sodium 130.0 mmol/L (132-148) L 01/04/17 11:10 Chloride 102.0 mmol/L (98-107) 01/04/17 11:10 Glucose 100 mg/dL (65-105) 01/04/17 11:10 Lactate 1.1 mmol/L (0.7-2.1) 01/04/17 11:10 FiO2 21.0 % 01/04/17 11:10 Crit Value Called To Nadeem malave 01/04/17 11:10 Crit Value Called By Ms 01/04/17 11:10 Crit Value Read Back Y 01/04/17 11:10 Blood Gas Notified Time 1115 01/04/17 11:10 Sodium 136 mmol/l (132-148) 01/10/17 06:00 Potassium 4.1 MMOL/L (3.6-5.0) 01/10/17 06:00 Chloride 101 mmol/L (98-107) 01/10/17 06:00 Carbon Dioxide 19 mmol/L (22-30) L 01/10/17 06:00 Anion Gap 20 (10-20) 01/10/17 06:00 BUN 80 mg/dl (7-17) H 01/10/17 06:00 Creatinine 5.6 mg/dL (0.7-1.2) H 01/10/17 06:00 Est GFR ( Amer) 9 01/10/17 06:00 Est GFR (Non-Af Amer) 7 01/10/17 06:00 POC Glucose (mg/dL) 94 mg/dL (65-110) 01/11/17 06:19 Random Glucose 99 mg/dL (65-105) 01/10/17 06:00 Calcium 9.2 mg/dL (8.4-10.2) 01/10/17 06:00 Phosphorus 5.8 mg/dl (2.5-4.5) H 01/08/17 11:48 Troponin I 0.0220 ng/mL (0.00-0.120) 01/04/17 18:15 Free T4 1.72 ng/dL (0.78-2.19) 01/07/17 06:15 TSH 3rd Generation 3.72 mIU/ML (0.46-4.68) 01/07/17 06:15 Venous Blood Potassium 9.2 mmol/L (3.6-5.2) H* 01/04/17 11:10 Urine Color Yellow (YELLOW) 01/07/17 15:00 Urine Clarity Cloudy (Clear) 01/07/17 15:00 Urine pH 6.0 (5.0-8.0) 01/07/17 15:00 Ur Specific Noti 1.012 (1.003-1.030) 01/07/17 15:00 Urine Protein 100 mg/dL (NEGATIVE) 01/07/17 15:00 Urine Glucose (UA) 50 mg/dL (Normal) 01/07/17 15:00 Urine Ketones Negative mg/dL (NEGATIVE) 01/07/17 15:00 Urine Blood Small (NEGATIVE) 01/07/17 15:00 Urine Nitrate Negative (NEGATIVE) 01/07/17 15:00 Urine Bilirubin Negative (NEGATIVE) 01/07/17 15:00 Urine Urobilinogen 0.2-1.0 mg/dL (0.2-1.0) 01/07/17 15:00 Ur Leukocyte Esterase Large [place]/uL (Negative) 01/07/17 15:00 Urine RBC (Auto) 11 /hpf (0-3) H 01/07/17 15:00 Urine WBC Clumps (Auto) Many /hpf (NONE) H 01/07/17 15:00 Urine Microscopic WBC 534 /hpf (0-5) H 01/07/17 15:00 Ur Squamous Epith Cells 2 /hpf (0-5) 01/07/17 15:00 Urine Osmolality 392 mosm/kg (300-1000) 01/07/17 15:00 Ur Random Creatinine 52.8 mg/dL 01/07/17 15:00 Ur Random Sodium 74 meq/L 01/07/17 15:00 Ur Random Potassium 32.0 mmol/L 01/07/17 15:00 - Hospital Course Hospital Course: ALERT AND ORIENTED CLINICALLY IMPROVED Discharge Exam - Head Exam Head Exam: ATRAUMATIC, NORMAL INSPECTION, NORMOCEPHALIC - Eye Exam Eye Exam: EOMI, Normal appearance, PERRL Pupil Exam: NORMAL ACCOMODATION, PERRL - Cardiovascular Exam Cardiovascular Exam: REGULAR RHYTHM - GI/Abdominal Exam GI & Abdominal Exam: Normal Bowel Sounds - Rectal Exam Rectal Exam: NORMAL INSPECTION - Neurological Exam Neurological exam: Alert, CN II-XII Intact, Oriented x3, Reflexes Normal - Psychiatric Exam Psychiatric exam: Normal Affect, Normal Mood - Skin Skin Exam: Dry, Intact, Normal Color, Warm Discharge Plan - Follow Up Plan Condition: FAIR Disposition: HOME/ ROUTINE Patient education suggested?: Yes Additional Instructions: CASE DISCUSSED WITH PT AND HER SON-GWYN PT TO BE DISCHARGED TODAY--SON WILL RATHER TAKE PT HOME INSTEAD OF SUBACUTE CARE
--- NOTE | 2017-01-11 09:56 | PQF GENQUE ---
Dr. Rothman, Please clarify the type of atrial fibrillation: if known >> Chronic >> Paroxysmal >> Permanent >> Persistent >> Other (please specify type) >> Unable to determine >> Unknown Cardiology consult: Atrial fibrillation, status post WILLIAM cardioversion and amiodarone therapy. At this point, would resume amiodarone at 100 mg p.o. daily. Would continue her current medications in terms of anticoagulation, Coumadin, to achieve a therapeutic INR This form is a permanent part of the medical record Clarification of your documentation is requested to better reflect the severity of illness and intensity of treatment of your patient. Indicators present [] Specify: [] [] Specify: [] [] Specify: [] [] Specify: [] Location in the medical record that reflects the above clinical findings: [] Treatment Provided: [] PHYSICIAN'S RESPONSE Based on your medical judgment of the clinical indicators outlined above please clarify the following: [X] Practitioner response --CHRONIC PAROXYSMAL ATRIAL FIBRILLATION [] If unable to determine, please check the box, sign and date. Present On Admission (POA) Indicator: [] Present at the time of admission [] Not present at the time of admission [] Clinically Undetermined In responding to this query, please exercise your independent professional judgment. The fact that a question is asked does not imply that any particular answer is desired or expected. Thank you for your clarification on this documentation. If you have any questions please call. * Thank you, Italia Saunders RN BSN ext. #[phone] MTDD
--- NOTE | 2017-01-11 10:24 | PQF GENQUE ---
Dr. Rothman, Acute Renal Failure: POA (Present on Admission)? BUN: 69->76->80------80 creatinine: 5.4->6.0->----5.6 GFR: (Af AM/Non-Af Am): 7->87->06/17 01/06: Renal note: JIL on CKD-4 01/07: Renal consult: Acute on chronic kidney disease stage IV. Renal function is slightly better today with gentle hydration. Will continue IV fluids half-normal saline at 50 mL per hour. This form is a permanent part of the medical record Clarification of your documentation is requested to better reflect the severity of illness and intensity of treatment of your patient. Indicators present [] Specify: [X]--CHRONIC RENAL FAILURE-STAGE 4 [] Specify: [] [] Specify: [] [] Specify: [] Location in the medical record that reflects the above clinical findings: [] Treatment Provided: [] PHYSICIAN'S RESPONSE Based on your medical judgment of the clinical indicators outlined above please clarify the following: [] Practitioner response [] If unable to determine, please check the box, sign and date. Present On Admission (POA) Indicator: [] Present at the time of admission [] Not present at the time of admission [] Clinically Undetermined In responding to this query, please exercise your independent professional judgment. The fact that a question is asked does not imply that any particular answer is desired or expected. Thank you for your clarification on this documentation. If you have any questions please call. * Thank you, Italia Saunders RN BSN ext. #[phone] MTDD
[2017-01-11 12:10] VITALS: BP 102/62; PULSE 83; TEMP 98.5; O2SAT 95
--- NOTE | 2017-01-11 14:56 | CP.PCM.PN ---
Subjective - Date & Time of Evaluation Date of Evaluation: 01/11/17 Time of Evaluation: 14:56 - Subjective Subjective: pt seen and examined, follow up consult is dictated #[id number] no new labs today possible d/c to [place] Objective - Vital Signs/Intake and Output Vital Signs (last 24 hours): Temp Pulse Resp BP Pulse Ox 98.5 F 83 18 102/62 95 01/11/17 12:09 01/11/17 13:06 01/11/17 12:09 01/11/17 13:06 01/11/17 12:09 - Medications Medications: Current Medications Albuterol/Ipratropium (Duoneb 3 Mg/0.5 Mg (3 Ml) Ud) 3 ml INH RQ6 [facility] Last Admin: 01/11/17 13:45 Dose: 3 ml Allopurinol (Zyloprim) 100 mg PO DAILY [facility] Last Admin: 01/11/17 08:57 Dose: 100 mg Amiodarone HCl (Cordarone) 100 mg PO DAILY [facility] Last Admin: 01/11/17 08:57 Dose: 100 mg Amlodipine Besylate (Norvasc) 2.5 mg PO DAILY [facility] Last Admin: 01/11/17 08:59 Dose: 2.5 mg Clonidine HCl (Catapres) 0.1 mg PO TID PRN PRN Reason: bp systolic greater than 170 Last Admin: 01/10/17 02:24 Dose: 0.1 mg Docusate Sodium (Colace) 100 mg PO DAILY PRN PRN Reason: Constipation Hydralazine HCl (Apresoline) 50 mg PO TID [facility] Last Admin: 01/11/17 13:06 Dose: 50 mg Hydroxyzine HCl (Atarax) 25 mg PO DAILY [facility] Last Admin: 01/11/17 08:59 Dose: 25 mg Insulin Human Regular (Humulin R) 0 units SC [facility] PRN Reason: Protocol Last Admin: 01/11/17 12:33 Dose: Not Given Magnesium Hydroxide (Milk Of Magnesia) 30 ml PO QID PRN PRN Reason: Constipation Metoprolol Succinate (Toprol Xl) 50 mg PO BID [facility] Last Admin: 01/11/17 08:58 Dose: 50 mg Pantoprazole Sodium (Protonix Ec Tab) 40 mg PO DAILY [facility] Last Admin: 01/11/17 08:58 Dose: 40 mg Sevelamer Carbonate (Renvela) 0.8 gm PO TIDWM [facility] Last Admin: 01/11/17 13:06 Dose: 0.8 gm Sodium Bicarbonate (Sodium Bicarbonate Tab) 650 mg PO Q8 [facility] Last Admin: 01/11/17 08:57 Dose: 650 mg - Labs Labs: 01/07/17 08:15 01/10/17 06:00 PT 18.7 SECONDS (9.6-11.2) H 01/11/17 05:50 INR 1.80 (0.92-1.08) H 01/11/17 05:50
--- NOTE | 2017-01-11 22:05 | PN ---
DATE: 01/11/2017 The patient is located in room 405, bed 1. REQUESTED BY: Dr. Francois Rothman. REASON FOR RENAL CONSULTATION: Acute renal failure, chronic kidney disease. HISTORY OF PRESENT ILLNESS: The patient is an 86-year-old elderly female with a history of hypertension, CVA and breast CA status post left breast surgery long time ago, now cardiac arrhythmi as and chronic kidney disease stage IV-V with a baseline creatinine between 4-5 and recurrent urinary tract infection, was admitted with altered mental status and also found to have decreased p.o. intak e and UTI, increased BUN and creatinine and metabolic acidosis. The patient is feeling slightly bett er, not in acute distress and denies any headache, dizziness. Denies any chest pain, palpitation. D enies any fever or cough. No abdominal pain, no nausea, vomiting, diarrhea. PHYSICAL EXAMINATION: VITAL SIGNS: Today, blood pressure 102/62, pulse 83, respirations 18, temperature 98.5, saturation 9 5%. Height 5 feet 7 inches and weight is 185 pounds. GENERAL: The patient is an 86-year-old elderly female, moderately built, moderately nourished, not i n any distress. HEENT: Pupils normal, reactive to light and accommodation. Conjunctivae pink. Sclerae anicteric. Tongue is moist. NECK: Trachea midline. LUNGS: Symmetric on both sides. Bilateral breath sounds present. Occasional expiratory rhonchi pre sent and no crackles. CARDIOVASCULAR: [place] in the fifth intercostal space midclavicular line. S1 and S2 audible. No murm ur or gallop. ABDOMEN: Normal in appearance, soft, tympanic. No guarding, no rigidity. No hepatosplenomegaly. CENTRAL NERVOUS SYSTEM: The patient is alert, awake, oriented x 2. Sensory and motor system is jose antonio sly within normal limits. Cranial nerves II through XII grossly intact. EXTREMITIES: No cyanosis, no clubbing, no edema. CURRENT MEDICATIONS: Include as follows: Hydralazine 50 mg p.o. t.i.d., Atarax 25 mg p.o. daily, Ca tapres 0.1 mg p.o. t.i.d., Colace 100 mg daily, amiodarone 100 mg p.o. daily, DuoNeb inhaler, and als o Milk of Magnesia, Norvasc 2.5 mg daily, Protonix 40 mg daily, Renvela 800 mg p.o. t.i.d., sodium bi carbonate 650 q. 8 hours, Toprol-XL 50 mg p.o. b.i.d. and allopurinol 100 mg daily. LABORATORY DATA: Include the PT is 18.7, INR 1.8 and Accu-Cheks 94 and 136. SUMMARY: The patient is an 86-year-old elderly female with history of hypertension, chroni c kidney disease, cardiac arrhythmia and recurrent urinary tract infection. 1. Renal failure, acute on chronic versus progression of chronic kidney disease to stage V. Renal f unction is relatively stable. Last creatinine is 5.6. No new labs are available today. 2. Status post urinary tract infection. Continue antibiotics as per Dr. Rothman. 3. Hypertension. Blood pressure is stable. Continue her antihypertensive medications, metoprolol, Norvasc, and hydralazine. I advised to follow up with the patient's primary food and beverage checker, Dr. Diamond Dotson as an outpatient. Thank you for allowing me to participate in your patient's care. The patient's family is not interes brissa in dialysis at this time as per conversation with primary food and beverage checker and also with Dr. Rothman. Vinny Caballero MD cc: [phone] TT: 01/11/2017 22:05:23 Confirmation # [id number] Dictation # [id number] erika
== END 2017-01-11 15:30 | DRG 683 ==
LOC: H.ER 10:24 → H.ERHOLD 15:36 → H.TEL 17:48
PROVIDERS: ADMIT Internal Medicine Pulmonary Disease; ATTEND Internal Medicine Pulmonary Disease
DX: N17.9 Acute kidney failure, unspecified (principal); N39.0 Urinary tract infection, site not specified; I13.2 Hypertensive heart and chronic kidney disease with heart failure and with stage 5 chronic kidney disease, or end stage renal disease; E87.2 Acidosis; N18.5 Chronic kidney disease, stage 5; E86.0 Dehydration; I48.0 Paroxysmal atrial fibrillation; J44.9 Chronic obstructive pulmonary disease, unspecified; B95.4 Other streptococcus as the cause of diseases classified elsewhere; F03.90 Unspecified dementia, unspecified severity, without behavioral disturbance, psychotic disturbance, mood disturbance, and anxiety; B95.61 Methicillin susceptible Staphylococcus aureus infection as the cause of diseases classified elsewhere; I50.9 Heart failure, unspecified; I25.10 Atherosclerotic heart disease of native coronary artery without angina pectoris; I34.0 Nonrheumatic mitral (valve) insufficiency; I49.8 Other specified cardiac arrhythmias; D64.9 Anemia, unspecified; Z91.19 Patient's noncompliance with other medical treatment and regimen; Z79.01 Long term (current) use of anticoagulants; Z86.73 Personal history of transient ischemic attack (TIA), and cerebral infarction without residual deficits; Z85.3 Personal history of malignant neoplasm of breast; Z87.440 Personal history of urinary (tract) infections; Z87.891 Personal history of nicotine dependence; Z99.3 Dependence on wheelchair